=== PATIENT | female | born 1950 | race Caucasian/White ===

== ENCOUNTER → 2017-07-28 | Outpatient (CLI) | payer OTHER ==
[~2017-07-28] MED LIST: BENZ1TAB2 PO; CITA20TA4 PO; RISP1TAB68 PO
--- NOTE | 2017-07-28 13:34 | MAMMOGRAPHY REPORT ---
BILATERAL DIGITAL SCREENING MAMMOGRAM WITH CAD: 07/28/2017 CLINICAL HISTORY: Routine screening. Patient has no complaints. TECHNIQUE: Bilateral CC and MLO views were obtained. Current study was also evaluated with a Compute r Aided Detection (CAD) system. COMPARISON: Comparison is made to exams dated: 07/22/2016 mammogram, 05/09/2010 mammogram, 06/22/2015 ammogram - [facility], and 03/28/2009. BREAST COMPOSITION: The tissue of both breasts is heterogeneously dense, which may obscure small mas ses. FINDINGS: The breast., Pattern is similar to prior exams. A stable grouping of punctate microcalcif ications in the slightly medial posterior right breast appear similar dating back to at least 2008, t herefore likely benign. No suspicious mass, architectural distortion or cluster of new, suspicious m icrocalcifications is seen. IMPRESSION: ACR BI-RADS CATEGORY 1: NEGATIVE There is no mammographic evidence of malignancy. A 1 year screening mammogram is recommended. The pa tient will receive written notification of the results. Approximately 10% of breast cancers are not detected with mammography. A negative mammographic report should not delay biopsy if a clinically suggestive mass is present. Cecilia Lizarraga M.D. ay/:07/28/2017 13:26:49 Maintenance Technician: Roseanne FIELDS(Alexis)(M), [facility] letter sent: Normal 1/2 BI-RADS Code: ACR BI-RADS Category 1: Negative
== END | disposition home or self-care (01) ==
LOC: C.MAMM 09:48
PROVIDERS: ATTEND Family Medicine
DX: Z12.31 Encounter for screening mammogram for malignant neoplasm of breast (principal)

== ENCOUNTER → 2018-02-23 | Day surgery (SDC) | payer OTHER ==
[2018-02-18 10:44] VITALS: Ht 160 cm; Wt 94.9 kg
--- NOTE | 2018-02-18 11:15 | PAT Medication Instructions ---
Service Date February 18, 2018. Current Home Medication List Acetaminophen (Tylenol), 650 MG PO Q6H PRN for PRN Aripiprazole (Abilify), 1 TAB PO DAILY Bromfenac Sodium (Ophth) (Prolensa), Unknown Dose OPR UD Guaifenesin (Tussin Adult), 5 ML PO QID PRN for CONGESTION Polymyxin/Trimethoprim Oph (Polytrim Oph), Unknown Dose OPR UD Prednisolone Acetate (Ophth) (Pred Forte 1% Oph), 1 DROPS OPR UD Venlafaxine Hcl (Venlafaxine Hcl Er), 2 CAP PO DAILY Medication Instructions For Your Scheduled Surgery -Continue as directed by your surgeon: Bromfenac Sodium (Ophth) (Prolensa), Unknown Dose OPR UD Polymyxin/Trimethoprim Oph (Polytrim Oph), Unknown Dose OPR UD Prednisolone Acetate (Ophth) (Pred Forte 1% Oph), 1 DROPS OPR UD - Hold the following medications the morning of surgery: Guaifenesin (Tussin Adult), 5 ML PO QID PRN for CONGESTION - Take the following medications the morning of surgery with a sip of water: Acetaminophen (Tylenol), 650 MG PO Q6H PRN for PRN (if needed, can be taken up to four hours before surgery) Aripiprazole (Abilify), 1 TAB PO DAILY Venlafaxine Hcl (Venlafaxine Hcl Er), 2 CAP PO DAILY - Take the following medications as scheduled the night before surgery: Acetaminophen (Tylenol), 650 MG PO Q6H PRN for PRN (if needed) Guaifenesin (Tussin Adult), 5 ML PO QID PRN for CONGESTION (if needed) If you have any questions please call us at [phone] or [phone] or [phone]
[2018-02-18 12:06] LABS: BASO % 0.5 %; BASO ABS # 0.03 K/uL (0-0.2); EOS % 0.5 %; EOS ABS # 0.03 K/uL (0-0.5); HEMATOCRIT 38.2 % (37-47); HEMOGLOBIN 12.8 g/dL (12.0-16.0); IG# 0.01 K/uL (0.00-0.02); LYMPH % 29.5 %; LYMPH ABS # 1.66 K/uL (1.2-3.4); MEAN CELL VOLUME 91.4 fL (80-100); MEAN CORPUSCULAR HEMOGLOBIN 30.6 pg (25-34); MEAN CORPUSCULAR HGB CONC 33.5 g/dl (32-36); MEAN PLATELET VOLUME 10.3 fL (7.4-10.4); MONO % 6.9 %; MONO ABS # 0.39 K/uL (0.11-0.59); NEUT % 62.4 %; PLATELET COUNT 229 K/uL (130-400); RED CELL DISTRIBUTION WIDTH CV 14.2 % (11.5-14.5); RED CELL DISTRIBUTION WIDTH SD 47.8 fL (36.4-46.3); WHITE BLOOD COUNT 5.62 K/uL (4.8-10.8)
[~2018-02-23] VITALS: Ht 160 cm; Wt 94.9 kg
[~2018-02-23] MED LIST changes: +500ML BSS 0.3ML EPI 1:1000PF IRRIG ONE; +ABL10 PO; +ACET-1311 PO; +ACETAMINOPHEN 325 MG TAB PO PRN; +AMVISC PLUS 0.8ML SYRINGE INT OCU ONE; +ATROPINE SULFATE 0.1 MG/ML 5ML SYR IV PRN; -BENZ1TAB2 PO; +BRIMONIDINE TART 0.2% OP SOLN PER DROP CHARGE ONE; +BROM0.07 OPR; +BROM1SOL8 OPR; +BSS FLUSH ONE; -CITA20TA4 PO; +ENDOCOAT 0.85ML SYRINGE INT OCU ONE; +EpHEDrine SULFATE INJ 50 MG/ML AMP IV PRN; +EpINEphrine INJ 1MG/ML AMP 1 MG/ML AMP ONE; +GUAI1LIQ16 PO; +LACTATED RINGER'S 1000ML 500 ML IV SCH; +LIDOCAINE 4% OP SOLN DROP CHARGE ONE; +LIDOCAINE 4% OP SOLN DROP CHARGE OPR SCH; +LIDOCAINE HCL 1% MPF 2 ML VIAL ONE; +LIDOCAINE HCL 2% 2 ML VIAL (20MG/ML) ONE; +MIDAZOLAM HCL 1 MG/ML 2ML VIAL ONE; +MIX: 3ML BSS AND 1ML EPI(PF) TOP ONE; +MOXIFLOXACIN OPH SOLN PER DROP CHARGE ONE; +PHENYLEPHRINE 100MCG/ML 5ML SYR IV PRN; +POLYSOL50 OPR; +POVIDONE-IODINE OP SOLN 30 ML BTL ONE; +PRED1SUS3 OPR; +PROPARACAINE 0.5% OP SOLN PER DROP CHARGE OPR SCH; +PROPOFOL IV EMULSION 10 MG/ML 20 ML VIAL ONE; -RISP1TAB68 PO; +TOBRAMYCIN/DEXAMETHASONE OPH OINT PER APPLN CHARGE ONE; +VENL150T33 PO
[2018-02-23] MEDS: PHENYLEPHRINE HCL 2.5% OP SOLN PER DROP CHARGE OPR SCH ×2 (07:00→07:05)
[2018-02-23] MEDS: TROPICAMIDE 1% OP SOLN PER DROP CHARGE OPR SCH ×2 (07:01→07:06)
[2018-02-23] MEDS: CYCLOPENTOLATE HCL 1% OP SOLN PER DROP CHARGE OPR SCH ×2 (07:02→07:07)
[2018-02-23] MEDS: KETOROLAC 0.5% OP SOLN PER DROP CHARGE OPR SCH ×2 (07:03→07:08)
[2018-02-23] MEDS: MOXIFLOXACIN OPH SOLN PER DROP CHARGE OPR SCH ×2 (07:04→07:14)
--- NOTE | 2018-02-23 07:39 | History & Physical Bridge - [place] ---
H&P Re-Evaluation Bridge Note: I have examined the patient, reviewed the History & Physical and in the interval since the performance of the History & Physical I have noted the following changes of clinical significance: Long discussion with patient and sister. Patient desires a plano aim for lens
--- NOTE | 2018-02-23 08:34 | [facility] Operative Report ---
Operative Report Operative Date February 23, 2018. Pre-Operative Diagnosis Cataract Right Eye Post-Operative Diagnosis Same Procedure(s) Performed Right Cataract Phacoemulsification With Intraocular Lens Implant Surgeon Dr. [facility] Agent Surgeon(s) None Estimated Blood Loss 0 Findings cataract right eye Fluids see anesthesia record Specimens None Drains None Anesthesia Type MAC Complication(s) none Disposition no Recovery Room / PACU Indications decreased vision right eye Description of Procedure After informed consent was obtained in the holding area the patient was wheeled back to the operating room where cardiac monitoring leads and oxygen by nasal cannula was administered by Anesthesia. Gentle IV sedation was given, and the patient's right eye was prepped and draped in usual sterile fashion. A wire lid speculum was placed into the right eye and the operating microscope was swung into position. Using 0.12 forceps and a Supersharp blade a paracentesis port was made 2 o'clock hours away from the 9 o'clock position of the patient's right eye. 1% non-preserved Lidocaine was then injected into the anterior chamber for anesthesia. A 2.0 mm keratotome blade was then used to make a shelved clear corneal incision at the 9 o'clock position of the right eye. Amvisc was injected into the anterior chamber and a cystotome and Utrata forceps were used to perform a curvilinear capsulorrhexis. BSS on a hydrodissection cannula was used to hydrodissect the lens nucleus away from the capsular bag. The phacoemulsification handpiece was then used in a stop and chop fashion to remove the lens nucleus. The irrigation and aspiration handpiece was then used to remove the residual cortical material. Amvisc was injected into the capsular bag and anterior chamber and a Bausch [employer] Lomb MX60E 21.5 Diopter intraocular lens was injected into the capsular bag. Irrigation and aspiration handpiece was used to remove the residual viscoelastic material. The wounds were hydrated and noted to be watertight. The wire lid speculum was removed from the eye. Vigamox, Brimonidine, and TobraDex ointment were placed on the eye and it was shielded. It should be noted that EndoCoat was used extensively during the case to protect the cornea endothelium. DISPOSITION: The patient tolerated the procedure well and was wheeled to the post anesthesia care unit in stable condition. I attest to the content of the Intraoperative Record and any orders documented therein. Any exceptions are noted below. I attest to the content of the Intraoperative Record and any orders documented therein. Any exceptions are noted below.
--- NOTE | 2018-02-23 08:36 | Discharge Instructions-SurgCtr ---
Discharge Instructions Date of Service February 23, 2018. Visit Reason for Visit: Cataract Right Eye Discharge Discharge Diagnosis / Problem: cataract right eye Discharge Goals Goal(s): Improve function Activity Recommendations Activity Limitations: per Instructions/Follow-up section Lifting Limitations: no more than 5 pounds Anesthesia . Post Anesthesia Instructions: If you have had General Anesthesia or IV Sedation: * Do not drive today. * Resume driving when surgeon permits. * Do not make important decisions or sign legal documents today. * Call surgeon for: 1. Temperature elevations greater than 101 degrees F. 2. Uncontrollable pain. 3. Excessive bleeding. 4. Persistent nausea and vomiting. 5. Medication intolerance (nausea, vomiting or rash). * For nausea and vomiting use only clear liquids such as: tea, soda, bouillon until nausea subsides, then gradually increase diet as tolerated. * If you have any concerns or questions, call your surgeon's office. If physician is unavailable and it is an emergency, call 911 or go to the nearest emergency room. . Instructions / Follow-Up Instructions / Follow-Up ACTIVITY RECOMMENDATIONS: * Light activities * You may walk outside, read, watch television. * Mild irritation and blurred vision are common for the first few days, redness around the white part of the eye is common. MEDICATIONS: Resume previous medications unless instructed otherwise by your surgeon. Eye drops (today and tomorrow): Polytrim - one drop in operative eye every 2 hours while awake Prednisolone 1% - one drop in operative eye every 2 hours while awake Bromfenac - one drop in operative eye once daily SPECIAL CARE INSTRUCTIONS: * If any problems or concerns, please call Dr. Brannon's office at . * Keep plastic shield taped over eye to sleep at night. * Keep plastic shield taped over eye except to administer eye drops. * Keep plastic shield on until office visit the following day. FOLLOW UP VISIT: Follow-up with Dr. Brannon in the [place] office as scheduled. If not already scheduled, please call the office at . Diet Recommendations Home Diet: resume previous diet Procedures Procedures Performed: Right Cataract Phacoemulsification With Intraocular Lens Implant Pending Studies Studies pending at discharge: no Medical Emergencies . Who to Call and When: Medical Emergencies: If at any time you feel your situation is an emergency, please call 911 immediately. . Non-Emergent Contact Non-Emergency issues call your: Shipping Support Clerk . . "Provider Documentation" section prepared by Miguelito Brannon. .
[2018-02-23 09:06] VITALS: BP 129/80; PULSE 74; O2SAT 96
--- NOTE | 2018-02-23 09:07 | Anesthesia Progress Nt - [facility] ---
Anesthesia Post Op Note Date & Time February 23, 2018 at 09:06 Vital Signs Pain Intensity: 0 Vital Signs Past 12 Hours Date Time Temp Pulse Resp B/P (MAP) Pulse Ox O2 Delivery O2 Flow Rate FiO2 02/23/18 08:36 36.7 74 20 104/70 (81) 94 Room Air 02/23/18 06:52 36.9 85 18 101/70 (80) 95 Room Air Notes Mental Status: alert / awake / arousable, participated in evaluation Pt Amnestic to Procedure: Yes Nausea / Vomiting: adequately controlled Pain: adequately controlled Airway Patency, RR, SpO2: stable & adequate BP & HR: stable & adequate Hydration State: stable & adequate Anesthetic Complications: no major complications apparent Awake, doing well, VSS. Did not require GA for the procedure. Tolerated procedure well with sedation. No complaints. Ready for d/c
== END | disposition home or self-care (01) ==
LOC: X.SURG 06:39
PROVIDERS: ATTEND Ophthalmology
DX: H26.9 Unspecified cataract (principal); F32.9 Major depressive disorder, single episode, unspecified; R41.3 Other amnesia; Z79.899 Other long term (current) drug therapy; E66.9 Obesity, unspecified; Z68.37 Body mass index [BMI] 37.0-37.9, adult; Z85.41 Personal history of malignant neoplasm of cervix uteri; Z87.891 Personal history of nicotine dependence

== ENCOUNTER 2020-09-25 10:36 | Inpatient (IN) ==
[2020-09-25] MEDS ORDERED: SODIUM CHLORIDE 0.9% 1000ML 1,000 ML IV SCH (11:15)
[2020-09-25 11:32] LABS: Basophils # (auto) 0.02 K/uL (0-0.2); Basophils % (auto) 0.3 %; Eosinophils # (auto) 0.02 K/uL (0-0.5); Eosinophils % (auto) 0.3 %; Hematocrit (blood only) 39.6 % (37-47); Hemoglobin 12.9 g/dL (12.0-16.0); Immature Granulocytes # (auto) 0.01 K/uL (0.00-0.02); Immature Granulocytes % (auto) 0.2 %; Lymphocytes # (auto) 1.19 K/uL (1.2-3.4); Lymphocytes % (auto) 18.9 %; Mean Corpuscular Hemoglobin 29.5 pg (25-34); Mean Corpuscular Hgb Conc 32.6 g/dL (32-36); Mean Corpuscular Volume 90.4 fL (80-100); Mean Platelet Volume 10.8 fL (7.4-10.4); Monocytes # (auto) 0.57 K/uL (0.11-0.59); Neutrophils # (auto) 4.49 K/uL (1.4-6.5); Neutrophils % (auto) 71.3 %; Platelet Count 204 K/uL (130-400); RDW Coefficient of Variation 14.4 % (11.5-14.5); RDW Standard Deviation 47.7 fL (36.4-46.3); Red Blood Count 4.38 M/uL (4.2-5.4)
[2020-09-25] MEDS ORDERED: DEXAMETHASONE SOD INJ 10 MG/ML VIAL IV ONE (11:34)
[2020-09-25 12:03] LABS: Alanine Aminotransferase 23 U/L (12-78); Albumin Level 3.1 gm/dl (3.4-5.0); Aspartate Aminotransferase 22 U/L (15-37); BUN Creatinine Ratio 15.6 (10-20); Blood Urea Nitrogen 16 mg/dl (7-18); Calcium 8.5 mg/dl (8.5-10.1); Carbon Dioxide 24 mmol/L (21-32); Chloride 105 mmol/L (98-107); Creatinine Clr Calc Pharmacy 59.5 ml/min; Est GFR (African American) 66.1; Glucose 95 mg/dl (70-99); Sodium 135 mmol/L (136-145)
[2020-09-25 12:08] LABS: Albumin Globulin Ratio 0.7 (0.9-2); Alkaline Phosphatase 77 U/L (45-117); Bilirubin,Total 0.4 mg/dl (0.2-1); Globulin 4.4 gm/dl (2.5-4.0); Total Protein 7.5 gm/dl (6.4-8.2); Troponin I < 0.015 ng/ml (0-0.045)
--- NOTE | 2020-09-25 12:14 | XRay Report ---
XR chest 1V portable CLINICAL HISTORY: fever cough covid+ COMPARISON STUDY: No previous studies for comparison. FINDINGS: Lung volumes are mildly diminished. There is no pneumothorax or pleural effusion. Mild to m oderate bilateral lower lung airspace opacities are present with interstitial thickening. There is abdulaziz rderline cardiomegaly. There is no evidence for pulmonary edema. IMPRESSION: Mild to moderate bilateral lower lung airspace opacities and interstitial thickening con sistent with an infectious process. Radiographic follow-up is recommended. ACT 112: Negative or not required by law. Electronically signed by: Lai Biggs M.D. 09/25/2020 12:12 PM
--- NOTE | 2020-09-25 12:23 | Electrocardiogram Report ---
Test Reason : Blood Pressure : / mmHG Vent. Rate : 088 BPM Atrial Rate : 088 BPM P-R Int : 160 ms QRS Dur : 070 ms QT Int : 358 ms P-R-T Axes : -01 -21 039 degrees QTc Int : 433 ms Poor data quality, interpretation may be adversely affected Normal sinus rhythm with sinus arrhythmia Nonspecific ST abnormality Abnormal ECG When compared with ECG of 18-FEB-2018 11:31, No significant change Confirmed by Vic Dumont ([id number]) on 09/25/2020 12:22:39 PM Referred By: REFERRED SELF Confirmed By:Vic Dumont
--- NOTE | 2020-09-25 15:11 | History & Physical Report ---
Date of Service September 25, 2020 Assessment & Plan (1) COVID-19: Isolation precautions: Airborne and droplet IV dexamethasone 6 mg daily Remdesivir IV 5-day course Patient declined convalescent plasma after discussion of benefits versus risks (2) Hypoxia: Secondary to COVID-19 pneumonia as above Aim O2 sats > 90% (3) Anxiety and depression: Continue venlafaxine 300 mg p.o. every morning and mirtazapine 15 mg p.o. at bedtime (4) Memory loss: Monitor for delirium Reorientate frequently (5) DVT prophylaxis: D-dimer < 700 therefore will give usual dose of lovenox 40mg SQ daily Admission and Anticipated Discharge Date Admission Date: 09/25/2020 History of Present Illness Chief Complaint: Hypoxia Primary Care Provider: Katalina Hart MD Estelle Lamas is a 70 year old female who presents for ER from [facility] via EMS due to fever, cough, shortness of breath, loss of taste and smell. The patient has known positive SARS-CoV-2 test on 09/20, resulted on 09/23. She reports her symptoms started 5 to 6 days ago. Symptoms include Fever, chills, shortness of breath (denied by patient but she is unsure), cough (non- prodictive), loss of taste or smell, myalgias, headache, fatigue, confusion. She was initially doing well however was found by carers today with O2 sats 84% on room air therefore was sent via EMS to the ER for further evaluation. In the ER O2 sats were 88% on room air. Chest x-ray concerning for mild to moderate bilateral airspace opacities and interstitial thickening. She was given 1 hour NSS bolus and dexamethasone 6 mg IV and referred to medicine for admission and ongoing management of COVID-19 pneumonia. Allergies Allergy/AdvReac Type Severity Reaction Status Date / Time No Known Allergies Allergy Unverified 03/16/18 08:48 Home Medications Medication Instructions Recorded Confirmed Type mirtazapine 15 mg PO HS 09/25/20 09/25/20 History venlafaxine 300 mg PO QAM 09/25/20 09/25/20 History Past Med/Surg History Medical History Anxiety and depression Memory loss Social History Smoking Status: Former smoker Hx Alcohol Use: No Hx Substance Use: No Preferred Language: Nepalese Communication Ability: Effective Pop Singer Required: No Beliefs That Will Affect Care: None Current Living Situation: Personal Care Facility Other Information That Helps Us Care for You: No Feels Safe at Home: Yes Safety Concerns: Feels Safe At This Time Assistive Devices: Oxygen - Continuous Review of Systems Review of Systems: All systems reviewed & are unremarkable except as noted in HPI & below Physical Exam Constitutional: well developed and well nourished; no acute distress Eyes: PERRL, conjunctivae normal, anicteric sclerae ENMT: external ear and nose normal, oropharynx normal Neck: trachea midline, no thyromegaly Respiratory: normal respiratory effort, lungs clear to auscultation Cardiovascular: RRR, no murmur, no edema Gastrointestinal (Abdomen): normal bowel sounds, soft, nontender, no hepatosplenomegaly Musculoskeletal: no cyanosis or clubbing, extremities motor strength 5/5 Skin: no rashes, warm and dry Neurologic: moves all extremities and awake; not confused Psychiatric: A+Ox3, euthymic affect Genitourinary: no CVA tenderness Results & Data Results & Data ([facility]) Vital Signs (Past 12 Hours) Vital Signs Temp Pulse Resp BP Pulse Ox 09/25/20 14:51 87 17 121/61 09/25/20 14:30 89 24 121/61 91 09/25/20 14:00 87 24 09/25/20 13:30 86 24 09/25/20 13:00 85 31 H 91 09/25/20 12:30 89 24 09/25/20 12:00 88 20 09/25/20 11:34 83 24 96 09/25/20 10:46 88 21 131/76 95 09/25/20 10:43 88 20 88 L 09/25/20 10:40 38.1 C H 86 20 131/76 88 L Diagnostic Findings XR chest 1V portable IMPRESSION: Mild to moderate bilateral lower lung airspace opacities and interstitial thickening consistent with an infectious process. Radiographic follow-up is recommended. Medications Administered ER medications given: NSS 1 L bolus Dexamethasone 6 mg IV ECG Indication: SOB/dyspnea Rate (beats per minute): 88 Rhythm: sinus with SA Findings: + nonspecific-ST abn (Nondiagnostic ST depressions in V4/V5) Comparison ECG Date: from (February 18, 2018) Change: the following changes noted (Nonspecific ST changes as above are new) Code Status & VTE Plan Code Status Full VTE Prophylaxis Plan VTE Prophylaxis will be ordered: Yes PG Care Time/CCT Total # of Minutes Spent Total Time Spent with Patient: Total time spent is greater than 50% in coordination of care (as documented) at patient's floor/unit and/or counseling patient: Coding Level of Care Code 87030 Initial Inpt Care Lvl 2 History Comprehensive Exam Comprehensive Medical Decision Making Moderate Complexity Diagnoses COVID-19 U07.1 Hypoxia R09.02 Anxiety and depression F41.9; F32.9 Memory loss R41.3 DVT prophylaxis Z29.9
[2020-09-25 15:37] LABS: C Reactive Protein 14.2 mg/dl (0-0.29); Ferritin 255.6 ng/ml (8-388)
[2020-09-25 15:39] LABS: D Dimer 580 ug/L FEU (0-500)
[2020-09-25] MEDS ORDERED: REMDESIVIR 200 MG in SODIUM CHLORIDE 0.9% 210 ML IV ONE (16:15)
[2020-09-25] MEDS ORDERED: SODIUM CHLORIDE 0.9% 10ML FLUSH IV SCH (18:00)
[2020-09-25] MEDS ORDERED: ACETAMINOPHEN 325 MG TAB PO PRN (18:13)
[2020-09-25] MEDS ORDERED: ALUMINUM/MAGNESIUM SUSP 30 ML UDC PO PRN (18:13)
[2020-09-25] MEDS ORDERED: POLYETHYLENE (MIRALAX) 17 GM PACK PO PRN (18:13)
[2020-09-25] MEDS ORDERED: PNEUMOCOCCAL ADMINISTRATION CHARGE ONE (18:38)
[2020-09-25] MEDS ORDERED: PNEUMOCOCCAL POLYSACCHARIDES 25 MCG/0.5 ML VIAL/SYR IM ONE (18:38)
--- NOTE | 2020-09-25 18:45 | Emergency Department Note ---
History of Present Illness General Chief complaint: Shortness of Breath/Dyspnea Time Seen by Provider: 09/25/20 11:03 Source: patient and RN notes reviewed Mode of arrival: EMS Limitations: no limitations History of Present Illness Provider complaint: SOB, hypoxia, COVID exposure This pt is a 70 yo female who presents to the ED with c/o SOB, cough and low O2. Pt lives in assisted living and has 2 roommates. The other 2 roommates have already been ill and tested + for COVID. Pt developed symptoms, including loss of taste and smell 3 days ago and tested positive 2 days ago. Pt was noted to have O2 sats of 84% on RA by staff today but was in no distress. Patient denies any vomiting or diarrhea. Home Medications Medication Instructions Recorded Confirmed Type mirtazapine 15 mg PO HS 09/25/20 09/25/20 History venlafaxine 300 mg PO QAM 09/25/20 09/25/20 History Allergies Allergy/AdvReac Type Severity Reaction Status Date / Time No Known Allergies Allergy Unverified 03/16/18 08:48 Past Med/Surg History Medical History Anxiety and depression Memory loss Social History Smoking Status: Former smoker Hx Alcohol Use: No Hx Substance Use: No Preferred Language: Tongan Communication Ability: Effective [employer] Required: No Beliefs That Will Affect Care: None Current Living Situation: Personal Care Facility Other Information That Helps Us Care for You: No Feels Safe at Home: Yes Safety Concerns: Feels Safe At This Time Assistive Devices: Oxygen - Continuous Review of Systems See HPI for pertinent positives & negatives. and A total of 10 systems reviewed and were otherwise negative Physical Exam Vital Signs Vital Signs - 24 hr 09/25/20 12:30 09/25/20 13:00 09/25/20 13:30 Temperature Temperature Source Pulse Rate 89 85 86 Pulse Rate from SpO2 Sensor 71 107 H Respiratory Rate 24 31 H 24 Blood Pressure Blood Pressure Mean Pulse Oximetry 91 Oxygen Delivery Method Nasal Cannula Oxygen Flow Rate 2 09/25/20 14:00 09/25/20 14:24 09/25/20 14:30 Temperature 37.5 C Temperature Source Oral Pulse Rate 87 89 Pulse Rate from SpO2 Sensor Respiratory Rate 24 24 Blood Pressure 121/61 Blood Pressure Mean 81 Pulse Oximetry 91 Oxygen Delivery Method Nasal Cannula Oxygen Flow Rate 2 09/25/20 14:51 Temperature Temperature Source Pulse Rate 87 Pulse Rate from SpO2 Sensor Respiratory Rate 17 Blood Pressure 121/61 Blood Pressure Mean 82 Pulse Oximetry Oxygen Delivery Method Oxygen Flow Rate Vital signs reviewed. General: Somewhat ill appearing 70 yo female, in no significant distress. HEENT: No scleral icterus, PERRLA, neck supple. Atraumatic. Cardiovascular: Regular rate and rhythm, no extra sounds. Pulmonary: Clear to auscultation bilaterally, normal work of breathing on n/c O2 Abdomen: Soft, nontender, nondistended, positive bowel sounds. Musculoskeletal: Atraumatic, no peripheral edema. Neurologic: Patient awake alert and oriented x 3 Skin: Warm, dry, no rash Course Administered Medications Acetaminophen (Acetaminophen 325 Mg Tab) 650 mg PO Q4H PRN PRN Reason: pain/fever Stop: 10/25/20 18:12 Last Admin: 09/26/20 08:03 Dose: 650 mg Documented by: [id number] Enoxaparin Sodium (Enoxaparin Inj 40 Mg/0.4 Ml Syr) 40 mg SQ QPM ADITI Stop: 10/25/20 20:59 Last Admin: 09/26/20 20:06 Dose: 40 mg Documented by: [id number] Admin: 09/25/20 21:25 Dose: 40 mg Documented by: [id number] Remdesivir 100 mg/ Sodium (Chloride) 250 mls @ 250 mls/hr IV Q24H ADITI; Protocol Stop: 09/29/20 20:59 Last Infusion: 09/26/20 22:25 Dose: 0 mls/hr Documented by: [id number] Admin: 09/26/20 20:06 Dose: 250 mls/hr Documented by: [id number] Dexamethasone Sodium Phosphate (6 mg/ Syringe) 1.5 mls @ 1 mls/min IV DAILY ADITI Stop: 10/05/20 08:59 Last Admin: 09/26/20 08:03 Dose: 1 mls/min Documented by: [id number] Mirtazapine (Mirtazapine Tab 15 Mg Tab) 15 mg PO HS ADITI Stop: 10/25/20 20:59 Last Admin: 09/26/20 20:06 Dose: 15 mg Documented by: [id number] Admin: 09/25/20 21:25 Dose: 15 mg Documented by: [id number] Sodium Chloride (Sodium Chloride 0.9% 10ml Flush) 30 ml IV Q24H ADITI Stop: 09/29/20 20:01 Last Admin: 09/25/20 19:42 Dose: 30 ml Documented by: [id number] Venlafaxine HCl (Venlafaxine Hcl Xr 150 Mg Capxr) 300 mg PO QAM ADITI Stop: 10/26/20 08:59 Last Admin: 09/26/20 08:03 Dose: 300 mg Documented by: [id number] Discontinued Medications Dexamethasone (Dexamethasone Sod Inj 10 Mg/Ml Vial) 6 mg IV NOW ONE Stop: 09/25/20 11:35 Last Admin: 09/25/20 13:15 Dose: 6 mg Documented by: [id number] Sodium Chloride (Nss 1000ml) 1,000 mls @ 999 mls/hr IV .Q1H1M ADITI Stop: 09/25/20 12:15 Last Infusion: 09/25/20 13:21 Dose: 0 mls/hr Documented by: [id number] Admin: 09/25/20 11:26 Dose: 999 mls/hr Documented by: [id number] Remdesivir 200 mg/ Sodium (Chloride) 250 mls @ 125 mls/hr IV ONE ONE; Protocol Stop: 09/25/20 18:14 Last Infusion: 09/25/20 19:42 Dose: 0 mls/hr Documented by: [id number] Admin: 09/25/20 17:06 Dose: 125 mls/hr Documented by: [id number] Medical Decision Making Differential Diagnosis Viral syndrome/COVID, otitis, pharyngitis, pneumonia, influenza, meningitis, urinary tract infection, sepsis, bacteremia, as well as other pathologies. Medical Records Attestation: I reviewed the patient's medical records. Home Medications Current Medication List: was personally reviewed by me Laboratory Data Attestation: I reviewed the patient's lab results. Result diagrams: 09/26/20 09:46 09/26/20 09:46 Lab Results 09/25/20 09/25/20 09/25/20 Range/Units 11:04 11:04 11:42 WBC 6.30 (4.8-10.8) K/uL RBC 4.38 (4.2-5.4) M/uL Hgb 12.9 (12.0-16.0) g/dL Hct 39.6 (37-47) % MCV 90.4 (80-100) fL MCH 29.5 (25-34) pg MCHC 32.6 (32-36) g/dL RDW Std Deviation 47.7 H (36.4-46.3) fL RDW Coeff of Princess 14.4 (11.5-14.5) % Plt Count 204 (130-400) K/uL MPV 10.8 H (7.4-10.4) fL Immature Gran % (Auto) 0.2 % Neut % (Auto) 71.3 % Lymph % (Auto) 18.9 % [place] % (Auto) 9.0 % Eos % (Auto) 0.3 % Baso % (Auto) 0.3 % Neut # (Auto) 4.49 (1.4-6.5) K/uL Lymph # (Auto) 1.19 L (1.2-3.4) K/uL [place] # (Auto) 0.57 (0.11-0.59) K/uL Eos # (Auto) 0.02 (0-0.5) K/uL Baso # (Auto) 0.02 (0-0.2) K/uL Immature Gran # (Auto) 0.01 (0.00-0.02) K/uL D-Dimer (0-500) ug/L FEU Sodium 135 L (136-145) mmol/L Potassium 4.0 (3.5-5.1) mmol/L Chloride 105 (98-107) mmol/L Carbon Dioxide 24 (21-32) mmol/L Anion Gap 6.0 (3-11) BUN 16 (7-18) mg/dl Creatinine 1.00 (0.6-1.2) mg/dl Est Cr Clr Drug Dosing 59.5 ml/min Est GFR ( Amer) 66.1 Est GFR (Non-Af Amer) 57.0 BUN/Creatinine Ratio 15.6 (10-20) Glucose 95 (70-99) mg/dl Lactate 0.8 (0.4-2.0) mmol/L Calcium 8.5 (8.5-10.1) mg/dl Ferritin (8-388) ng/ml Total Bilirubin 0.4 (0.2-1) mg/dl AST 22 (15-37) U/L ALT 23 (12-78) U/L Alkaline Phosphatase 77 (45-117) U/L Lactate Dehydrogenase (84-246) U/L Total Creatine Kinase (26-192) U/L Troponin I < 0.015 (0-0.045) ng/ml C-Reactive Protein (0-0.29) mg/dl Total Protein 7.5 (6.4-8.2) gm/dl Albumin 3.1 L (3.4-5.0) gm/dl Globulin 4.4 H (2.5-4.0) gm/dl Albumin/Globulin Ratio 0.7 L (0.9-2) Procalcitonin (0-0.5) ng/ml Specimen Hemolysis COVID-19 Eval Order SARS-CoV-2, RNA, NAAT (NEGATIVE) Blood Type Antibody Screen 09/25/20 09/25/20 09/25/20 Range/Units 11:42 13:06 13:06 WBC (4.8-10.8) K/uL RBC (4.2-5.4) M/uL Hgb (12.0-16.0) g/dL Hct (37-47) % MCV (80-100) fL MCH (25-34) pg MCHC (32-36) g/dL RDW Std Deviation (36.4-46.3) fL RDW Coeff of Princess (11.5-14.5) % Plt Count (130-400) K/uL MPV (7.4-10.4) fL Immature Gran % (Auto) % Neut % (Auto) % Lymph % (Auto) % [place] % (Auto) % Eos % (Auto) % Baso % (Auto) % Neut # (Auto) (1.4-6.5) K/uL Lymph # (Auto) (1.2-3.4) K/uL [place] # (Auto) (0.11-0.59) K/uL Eos # (Auto) (0-0.5) K/uL Baso # (Auto) (0-0.2) K/uL Immature Gran # (Auto) (0.00-0.02) K/uL D-Dimer (0-500) ug/L FEU Sodium (136-145) mmol/L Potassium (3.5-5.1) mmol/L Chloride (98-107) mmol/L Carbon Dioxide (21-32) mmol/L Anion Gap (3-11) BUN (7-18) mg/dl Creatinine (0.6-1.2) mg/dl Est Cr Clr Drug Dosing ml/min Est GFR ( Amer) Est GFR (Non-Af Amer) BUN/Creatinine Ratio (10-20) Glucose (70-99) mg/dl Lactate (0.4-2.0) mmol/L Calcium (8.5-10.1) mg/dl Ferritin (8-388) ng/ml Total Bilirubin (0.2-1) mg/dl AST (15-37) U/L ALT (12-78) U/L Alkaline Phosphatase (45-117) U/L Lactate Dehydrogenase (84-246) U/L Total Creatine Kinase (26-192) U/L Troponin I (0-0.045) ng/ml C-Reactive Protein (0-0.29) mg/dl Total Protein (6.4-8.2) gm/dl Albumin (3.4-5.0) gm/dl Globulin (2.5-4.0) gm/dl Albumin/Globulin Ratio (0.9-2) Procalcitonin 0.12 (0-0.5) ng/ml Specimen Hemolysis COVID-19 Eval [email or web address] SARS-CoV-2, RNA, NAAT POSITIVE A* (NEGATIVE) Blood Type Antibody Screen 09/25/20 09/25/20 09/25/20 Range/Units 14:59 14:59 14:59 WBC (4.8-10.8) K/uL RBC (4.2-5.4) M/uL Hgb (12.0-16.0) g/dL Hct (37-47) % MCV (80-100) fL MCH (25-34) pg MCHC (32-36) g/dL RDW Std Deviation (36.4-46.3) fL RDW Coeff of Princess (11.5-14.5) % Plt Count (130-400) K/uL MPV (7.4-10.4) fL Immature Gran % (Auto) % Neut % (Auto) % Lymph % (Auto) % [place] % (Auto) % Eos % (Auto) % Baso % (Auto) % Neut # (Auto) (1.4-6.5) K/uL Lymph # (Auto) (1.2-3.4) K/uL [place] # (Auto) (0.11-0.59) K/uL Eos # (Auto) (0-0.5) K/uL Baso # (Auto) (0-0.2) K/uL Immature Gran # (Auto) (0.00-0.02) K/uL D-Dimer 580 H* (0-500) ug/L FEU Sodium (136-145) mmol/L Potassium (3.5-5.1) mmol/L Chloride (98-107) mmol/L Carbon Dioxide (21-32) mmol/L Anion Gap (3-11) BUN (7-18) mg/dl Creatinine (0.6-1.2) mg/dl Est Cr Clr Drug Dosing ml/min Est GFR ( Amer) Est GFR (Non-Af Amer) BUN/Creatinine Ratio (10-20) Glucose (70-99) mg/dl Lactate (0.4-2.0) mmol/L Calcium (8.5-10.1) mg/dl Ferritin 255.6 (8-388) ng/ml Total Bilirubin (0.2-1) mg/dl AST (15-37) U/L ALT (12-78) U/L Alkaline Phosphatase (45-117) U/L Lactate Dehydrogenase 203 (84-246) U/L Total Creatine Kinase 47 (26-192) U/L Troponin I (0-0.045) ng/ml C-Reactive Protein 14.20 H (0-0.29) mg/dl Total Protein (6.4-8.2) gm/dl Albumin (3.4-5.0) gm/dl Globulin (2.5-4.0) gm/dl Albumin/Globulin Ratio (0.9-2) Procalcitonin (0-0.5) ng/ml Specimen Hemolysis COVID-19 Eval Order SARS-CoV-2, RNA, NAAT (NEGATIVE) Blood Type Antibody Screen 09/25/20 Range/Units 14:59 WBC (4.8-10.8) K/uL RBC (4.2-5.4) M/uL Hgb (12.0-16.0) g/dL Hct (37-47) % MCV (80-100) fL MCH (25-34) pg MCHC (32-36) g/dL RDW Std Deviation (36.4-46.3) fL RDW Coeff of Princess (11.5-14.5) % Plt Count (130-400) K/uL MPV (7.4-10.4) fL Immature Gran % (Auto) % Neut % (Auto) % Lymph % (Auto) % [place] % (Auto) % Eos % (Auto) % Baso % (Auto) % Neut # (Auto) (1.4-6.5) K/uL Lymph # (Auto) (1.2-3.4) K/uL [place] # (Auto) (0.11-0.59) K/uL Eos # (Auto) (0-0.5) K/uL Baso # (Auto) (0-0.2) K/uL Immature Gran # (Auto) (0.00-0.02) K/uL D-Dimer (0-500) ug/L FEU Sodium (136-145) mmol/L Potassium (3.5-5.1) mmol/L Chloride (98-107) mmol/L Carbon Dioxide (21-32) mmol/L Anion Gap (3-11) BUN (7-18) mg/dl Creatinine (0.6-1.2) mg/dl Est Cr Clr Drug Dosing ml/min Est GFR ( Amer) Est GFR (Non-Af Amer) BUN/Creatinine Ratio (10-20) Glucose (70-99) mg/dl Lactate (0.4-2.0) mmol/L Calcium (8.5-10.1) mg/dl Ferritin (8-388) ng/ml Total Bilirubin (0.2-1) mg/dl AST (15-37) U/L ALT (12-78) U/L Alkaline Phosphatase (45-117) U/L Lactate Dehydrogenase (84-246) U/L Total Creatine Kinase (26-192) U/L Troponin I (0-0.045) ng/ml C-Reactive Protein (0-0.29) mg/dl Total Protein (6.4-8.2) gm/dl Albumin (3.4-5.0) gm/dl Globulin (2.5-4.0) gm/dl Albumin/Globulin Ratio (0.9-2) Procalcitonin (0-0.5) ng/ml Specimen Hemolysis COVID-19 Eval Order SARS-CoV-2, RNA, NAAT (NEGATIVE) Blood Type O Negative Antibody Screen NEGATIVE Imaging Data Radiologist's Impression: XR chest 1V portable CLINICAL HISTORY: fever cough covid+ COMPARISON STUDY: No previous studies for comparison. FINDINGS: Lung volumes are mildly diminished. There is no pneumothorax or pleural effusion. Mild to moderate bilateral lower lung airspace opacities are present with interstitial thickening. There is borderline cardiomegaly. There is no evidence for pulmonary edema. IMPRESSION: Mild to moderate bilateral lower lung airspace opacities and interstitial thickening consistent with an infectious process. Radiographic follow-up is recommended. ACT 112: Negative or not required by law. Electronically signed by: Lai Biggs M.D. 09/25/2020 12:12 PM Dictated: 09/25/202Transcribed: 09/25/20 121 ECG Data Attestation: I personally reviewed and interpreted this ECG as follows: Indication: + SOB/dyspnea Rate (beats per minute): 88 Rhythm: + sinus with SA ECG Intervals/blocks: + Normal QT-c ECG ST segments: + Nonspecific ST abnormalities ECG Findings: + Q waves (Inferior) Blood Pressure Blood Pressure Findings: Normal blood pressure Blood Pressure Disposition: did not require urgent referral MDM Narrative This pt was evaluated and appeared to be in no distress. Patient was placed in isolation. IV access was obtained and lab work was drawn. Patient was hydrated with normal saline solution. She was placed on nasal cannula oxygen. An order for cardiac monitoring was placed and the patient was noted to be in a sinus rhythm at 88 bpm. Chest x-ray was performed and reveals bilateral lower airspace opacities. Patient was positive for COVID-19. Patient was given dexa methasone 6 mg IV. Case was discussed with the hospitalist service who will evaluate the patient for admission and further management. Impression & Plan Pneumonia due to 2019 novel coronavirus, Hypoxia Discharge Plan Visit Data Chief Complaint: Shortness of Breath/Dyspnea ED Provider: Valeria Kim Discharge Problem: Pneumonia due to 2019 novel coronavirus, Hypoxia Patient Disposition: Admitted As Inpatient Discharge Instructions Interventions: ED Discharge Assessment Last Done: 09/25/20 18:07
[2020-09-25] MEDS: SODIUM CHLORIDE 0.9% 10ML FLUSH IV SCH (19:42)
[2020-09-25] MEDS: MIRTAZAPINE TAB 15 MG TAB PO SCH (21:25)
[2020-09-25] MEDS: ENOXAPARIN INJ 40 MG/0.4 ML SYR SQ SCH (21:25)
[2020-09-25 22:22] LABS: Appearance Urine Cloudy (Clear); Bacteria Urine Automated Negative (Negative); Blood Urine Negative (Negative); Color Urine Dark Yellow; Epithelial Cell Urine Auto >30 /lpf (0-5); Glucose Urine UA Negative (Negative); Ketones Urine 1+ (Negative); Leukocyte Esterase Urine Negative (Negative); Nitrite Urine Negative (Negative); Protein Urine 1+ (Negative); Specific Gravity Urine 1.036 (1.000-1.030); Urobilinogen Urine Negative (Negative)
[2020-09-25 22:40] LABS: Bilirubin Urine Negative (Negative); Ictotest Urine Negative (Negative)
[2020-09-25 23:09] LABS: Mucus Urine Present (None Prsent)
[2020-09-25 23:10] LABS: RBC Urine Automated 0-4 /hpf (0-4)
[2020-09-26] MEDS: VENLAFAXINE HCL XR 150 MG CAPXR PO SCH (08:03)
[2020-09-26] MEDS: DEXAMETHASONE SOD PHOSPHATE 6 MG in SYRINGE 0 ML IV SCH (08:03)
[2020-09-26] MEDS ORDERED: DEXAMETHASONE SOD INJ 4 MG/ML VIAL IV SCH (09:00)
[2020-09-26 10:26] LABS: Basophils # (auto) 0.02 K/uL (0-0.2); Basophils % (auto) 0.3 %; Eosinophils # (auto) 0.01 K/uL (0-0.5); Eosinophils % (auto) 0.1 %; Hematocrit (blood only) 39.3 % (37-47); Hemoglobin 12.6 g/dL (12.0-16.0); Immature Granulocytes # (auto) 0.01 K/uL (0.00-0.02); Immature Granulocytes % (auto) 0.1 %; Lymphocytes # (auto) 0.57 K/uL (1.2-3.4); Lymphocytes % (auto) 7.5 %; Mean Corpuscular Hgb Conc 32.1 g/dL (32-36); Mean Corpuscular Volume 90.6 fL (80-100); Mean Platelet Volume 10.9 fL (7.4-10.4); Monocytes # (auto) 0.32 K/uL (0.11-0.59); Monocytes % (auto) 4.2 %; Neutrophils # (auto) 6.72 K/uL (1.4-6.5); Neutrophils % (auto) 87.8 %; Platelet Count 201 K/uL (130-400); RDW Coefficient of Variation 14.3 % (11.5-14.5); RDW Standard Deviation 48.1 fL (36.4-46.3); Red Blood Count 4.34 M/uL (4.2-5.4); White Blood Count 7.65 K/uL (4.8-10.8)
[2020-09-26 10:55] LABS: Albumin Level 2.7 gm/dl (3.4-5.0); BUN Creatinine Ratio 24.5 (10-20); Calcium 8.5 mg/dl (8.5-10.1); Creatinine Clr Calc Pharmacy 66.3 ml/min; Est GFR (African American) 75.1; Est GFR (Non-African American) 64.8; Potassium 3.6 mmol/L (3.5-5.1)
[2020-09-26 10:57] LABS: Albumin Globulin Ratio 0.6 (0.9-2); Bilirubin,Total 0.3 mg/dl (0.2-1); Globulin 4.3 gm/dl (2.5-4.0)
--- NOTE | 2020-09-26 16:15 | Hospitalist Progress Note ---
Date of Service September 26, 2020 Assessment & Plan (1) COVID-19: Isolation precautions: Airborne and droplet IV dexamethasone 6 mg daily, day 2 Remdesivir IV 5-day course, day 2 Patient declined convalescent plasma after discussion of benefits versus risks stable on 2L, try to wean as tolerated (2) Hypoxia: Secondary to COVID-19 pneumonia as above Aim O2 sats > 90% stable on 2L today, no increased work of breathing (3) Anxiety and depression: Continue venlafaxine 300 mg p.o. every morning and mirtazapine 15 mg p.o. at bedtime (4) Memory loss: Monitor for delirium Reorientate frequently (5) DVT prophylaxis: D-dimer < 700 therefore will give usual dose of lovenox 40mg SQ daily Admission and Anticipated Discharge Date Admission Date: September 25, 2020 Subjective patient laying in bed, doing a little better she says she does not have much of an appetite, food tastes okay, just not hungry she is breathing easier than at the time of admission, stable on 2L currently she has some diaphoresis but denies fever/chills, nausea/vomiting, diarrhea, cough reviewed chart reviewed labs, CBC and BMP both stable Review of Systems Review of Systems: All systems reviewed & are unremarkable except as noted in Subjective Physical Exam Constitutional: WD/WN, vitals as above + ill appearing and + diaphoretic; no acute distress Neck: trachea midline, no thyromegaly Respiratory: normal respiratory effort, lungs clear to auscultation Cardiovascular: RRR, no murmur, no edema Gastrointestinal (Abdomen): normal bowel sounds, soft, nontender, no hepatosplenomegaly Musculoskeletal: no cyanosis or clubbing, extremities motor strength 5/5 Skin: no rashes, warm and dry Neurologic: patellar DTR's 2+ bilat, sensation intact and PERRL, EOMI, accommodation nl, no face palsy, no dysarthria Psychiatric: A+Ox3, euthymic affect Lymphatic: no cervical or axillary lymphadenopathy Results & Data Results & Data ([facility]) Vital Signs (Past 12 Hours) Vital Signs Temp Pulse Resp BP Pulse Ox 09/26/20 15:07 36.5 C 77 20 138/80 96 09/26/20 10:35 93 09/26/20 08:09 94 09/26/20 07:36 36.9 C 84 18 119/66 93 Laboratory Results Laboratory Results - last 24 hr 09/25/20 09/25/20 09/26/20 21:35 21:35 09:46 WBC 7.65 RBC 4.34 Hgb 12.6 Hct 39.3 MCV 90.6 MCH 29.0 MCHC 32.1 RDW Std Deviation 48.1 H RDW Coeff of Princess 14.3 Plt Count 201 MPV 10.9 H Immature Gran % (Auto) 0.1 Neut % (Auto) 87.8 Lymph % (Auto) 7.5 [place] % (Auto) 4.2 Eos % (Auto) 0.1 Baso % (Auto) 0.3 Neut # (Auto) 6.72 H Lymph # (Auto) 0.57 L [place] # (Auto) 0.32 Eos # (Auto) 0.01 Baso # (Auto) 0.02 Immature Gran # (Auto) 0.01 Sodium Potassium Chloride Carbon Dioxide Anion Gap BUN Creatinine Est Cr Clr Drug Dosing Est GFR ( Amer) Est GFR (Non-Af Amer) BUN/Creatinine Ratio Glucose Calcium Total Bilirubin AST ALT Alkaline Phosphatase Total Protein Albumin Globulin Albumin/Globulin Ratio Urine Color Dark Yellow Urine Appearance Cloudy A Urine pH 5.0 Ur Specific [place] 1.036 H Urine Protein 1+ H Urine Glucose (UA) Negative Urine Ketones 1+ H Urine Blood Negative Urine Nitrite Negative Urine Bilirubin Negative Urine Urobilinogen Negative Ur Leukocyte Esterase Negative Urine WBC (Auto) 10-30 H Urine RBC (Auto) 0-4 U Hyaline Cast (Auto) 1-5 U Epithel Cells (Auto) >30 H Urine Bacteria (Auto) Negative Ur Renal Epithelial Cell Not Reportable Urine Mucus Present A Urine Yeast Not Reportable Nasal Screen MRSA (PCR) Negative 09/26/20 09:46 WBC RBC Hgb Hct MCV MCH MCHC RDW Std Deviation RDW Coeff of Princess Plt Count MPV Immature Gran % (Auto) Neut % (Auto) Lymph % (Auto) [place] % (Auto) Eos % (Auto) Baso % (Auto) Neut # (Auto) Lymph # (Auto) [place] # (Auto) Eos # (Auto) Baso # (Auto) Immature Gran # (Auto) Sodium 140 Potassium 3.6 Chloride 110 H Carbon Dioxide 23 Anion Gap 7.0 BUN 22 H Creatinine 0.90 Est Cr Clr Drug Dosing 66.3 Est GFR ( Amer) 75.1 Est GFR (Non-Af Amer) 64.8 BUN/Creatinine Ratio 24.5 H Glucose 155 H Calcium 8.5 Total Bilirubin 0.3 AST 16 ALT 21 Alkaline Phosphatase 67 Total Protein 7.0 Albumin 2.7 L Globulin 4.3 H Albumin/Globulin Ratio 0.6 L Urine Color Urine Appearance Urine pH Ur Specific [place] Urine Protein Urine Glucose (UA) Urine Ketones Urine Blood Urine Nitrite Urine Bilirubin Urine Urobilinogen Ur Leukocyte Esterase Urine WBC (Auto) Urine RBC (Auto) U Hyaline Cast (Auto) U Epithel Cells (Auto) Urine Bacteria (Auto) Ur Renal Epithelial Cell Urine Mucus Urine Yeast Nasal Screen MRSA (PCR) Medications Administered Current Inpatient Medications Acetaminophen (Acetaminophen 325 Mg Tab) 650 mg PO Q4H PRN PRN Reason: pain/fever Stop: 10/25/20 18:12 Last Admin: 09/26/20 08:03 Dose: 650 mg Documented by: Al Hydrox/Mg Hydrox/Simethicone (Aluminum/Magnesium Susp 30 Ml Udc) 30 ml PO Q6H PRN PRN Reason: Dyspepsia Stop: 10/25/20 18:12 Enoxaparin Sodium (Enoxaparin Inj 40 Mg/0.4 Ml Syr) 40 mg SQ QPM ADITI Stop: 10/25/20 20:59 Last Admin: 09/25/20 21:25 Dose: 40 mg Documented by: Remdesivir 100 mg/ Sodium (Chloride) 250 mls @ 250 mls/hr IV Q24H ADITI; Protocol Stop: 09/29/20 20:59 Dexamethasone Sodium Phosphate (6 mg/ Syringe) 1.5 mls @ 1 mls/min IV DAILY ADITI Stop: 10/05/20 08:59 Last Admin: 09/26/20 08:03 Dose: 1 mls/min Documented by: Mirtazapine (Mirtazapine Tab 15 Mg Tab) 15 mg PO HS ADITI Stop: 10/25/20 20:59 Last Admin: 09/25/20 21:25 Dose: 15 mg Documented by: Polyethylene Glycol (Polyethylene (Miralax) 17 Gm Pack) 17 gm PO DAILY PRN PRN Reason: Constipation Stop: 10/25/20 18:12 Sodium Chloride (Sodium Chloride 0.9% 10ml Flush) 30 ml IV Q24H ADITI Stop: 09/29/20 20:01 Last Admin: 09/25/20 19:42 Dose: 30 ml Documented by: Venlafaxine HCl (Venlafaxine Hcl Xr 150 Mg Capxr) 300 mg PO QAM [facility] Stop: 10/26/20 08:59 Last Admin: 09/26/20 08:03 Dose: 300 mg Documented by: PG Care Time/CCT Total # of Minutes Spent Total Time Spent with Patient: Total time spent is greater than 50% in coordination of care (as documented) at patient's floor/unit and/or counseling patient: Coding Level of Care Code 90060 Subseq Hosp Care Lvl 2 Diagnoses COVID-19 U07.1 Hypoxia R09.02 Anxiety and depression F41.9; F32.9 Memory loss R41.3 DVT prophylaxis Z29.9
[2020-09-26] MEDS: REMDESIVIR 100 MG in SODIUM CHLORIDE 0.9% 230 ML IV SCH (20:06)
[2020-09-26] MEDS: ENOXAPARIN INJ 40 MG/0.4 ML SYR SQ SCH (20:06)
[2020-09-26] MEDS: MIRTAZAPINE TAB 15 MG TAB PO SCH (20:06)
[2020-09-27] MEDS: VENLAFAXINE HCL XR 150 MG CAPXR PO SCH (08:44)
[2020-09-27] MEDS: DEXAMETHASONE SOD PHOSPHATE 6 MG in SYRINGE 0 ML IV SCH (08:44)
--- NOTE | 2020-09-27 16:47 | Hospitalist Progress Note ---
Date of Service September 27, 2020 Assessment & Plan (1) COVID-19: Isolation precautions: Airborne and droplet IV dexamethasone 6 mg daily, day 3 Remdesivir IV 5-day course, day 3 Patient declined convalescent plasma after discussion of benefits versus risks remains stable on 2L, no increased work of breathing try to wean as tolerated (2) Hypoxia: Secondary to COVID-19 pneumonia as above Aim O2 sats > 90% stable on 2L today, try to wean (3) Anxiety and depression: Continue venlafaxine 300 mg p.o. every morning and mirtazapine 15 mg p.o. at bedtime (4) Memory loss: Monitor for delirium Reorientate frequently (5) DVT prophylaxis: D-dimer < 700 therefore will give usual dose of lovenox 40mg SQ daily Admission and Anticipated Discharge Date Admission Date: September 25, 2020 Subjective patient remains stable, breathing is the same she is trying to eat but still does not have much taste no fever/chills, no nausea, no diarrhea stable on 2L no labs today Review of Systems Review of Systems: All systems reviewed & are unremarkable except as noted in Subjective Physical Exam Constitutional: WD/WN, vitals as above no acute distress Neck: trachea midline, no thyromegaly Respiratory: normal respiratory effort, lungs clear to auscultation Cardiovascular: RRR, no murmur, no edema Gastrointestinal (Abdomen): normal bowel sounds, soft, nontender, no hepatosplenomegaly Musculoskeletal: no cyanosis or clubbing, extremities motor strength 5/5 Skin: no rashes, warm and dry Neurologic: patellar DTR's 2+ bilat, sensation intact and PERRL, EOMI, accommodation nl, no face palsy, no dysarthria Psychiatric: A+Ox3, euthymic affect Lymphatic: no cervical or axillary lymphadenopathy Results & Data Results & Data ([facility]) Vital Signs (Past 12 Hours) Vital Signs Temp Pulse Resp BP Pulse Ox 09/27/20 15:30 37.0 C 72 18 128/77 92 09/27/20 08:40 85 L 09/27/20 07:12 37 C 71 18 144/80 H 91 09/27/20 06:01 92 09/27/20 06:00 78 L Medications Administered Current Inpatient Medications Acetaminophen (Acetaminophen 325 Mg Tab) 650 mg PO Q4H PRN PRN Reason: pain/fever Stop: 10/25/20 18:12 Last Admin: 09/26/20 08:03 Dose: 650 mg Documented by: Al Hydrox/Mg Hydrox/Simethicone (Aluminum/Magnesium Susp 30 Ml Udc) 30 ml PO Q6H PRN PRN Reason: Dyspepsia Stop: 10/25/20 18:12 Enoxaparin Sodium (Enoxaparin Inj 40 Mg/0.4 Ml Syr) 40 mg SQ QPM ADITI Stop: 10/25/20 20:59 Last Admin: 09/26/20 20:06 Dose: 40 mg Documented by: Remdesivir 100 mg/ Sodium (Chloride) 250 mls @ 250 mls/hr IV Q24H ADITI; Protocol Stop: 09/29/20 20:59 Last Infusion: 09/26/20 22:25 Dose: Infused Documented by: Dexamethasone Sodium Phosphate (6 mg/ Syringe) 1.5 mls @ 1 mls/min IV DAILY ADITI Stop: 10/05/20 08:59 Last Admin: 09/27/20 08:44 Dose: 1 mls/min Documented by: Mirtazapine (Mirtazapine Tab 15 Mg Tab) 15 mg PO HS ADITI Stop: 10/25/20 20:59 Last Admin: 09/26/20 20:06 Dose: 15 mg Documented by: Polyethylene Glycol (Polyethylene (Miralax) 17 Gm Pack) 17 gm PO DAILY PRN PRN Reason: Constipation Stop: 10/25/20 18:12 Sodium Chloride (Sodium Chloride 0.9% 10ml Flush) 30 ml IV Q24H ADITI Stop: 09/29/20 20:01 Last Admin: 09/25/20 19:42 Dose: 30 ml Documented by: Venlafaxine HCl (Venlafaxine Hcl Xr 150 Mg Capxr) 300 mg PO QAM ADITI Stop: 10/26/20 08:59 Last Admin: 09/27/20 08:44 Dose: 300 mg Documented by: PG Care Time/CCT Total # of Minutes Spent Total Time Spent with Patient: Total time spent is greater than 50% in coordination of care (as documented) at patient's floor/unit and/or counseling patient: Coding Level of Care Code 25052 Subseq Hosp Care Lvl 2 Diagnoses COVID-19 U07.1 Hypoxia R09.02 Anxiety and depression F41.9; F32.9 Memory loss R41.3 DVT prophylaxis Z29.9
[2020-09-27] MEDS: ENOXAPARIN INJ 40 MG/0.4 ML SYR SQ SCH (20:28)
[2020-09-27] MEDS: MIRTAZAPINE TAB 15 MG TAB PO SCH (20:28)
[2020-09-27] MEDS: REMDESIVIR 100 MG in SODIUM CHLORIDE 0.9% 230 ML IV SCH (20:28)
[2020-09-27] MEDS: SODIUM CHLORIDE 0.9% 10ML FLUSH IV SCH (20:30)
[2020-09-28] MEDS: DEXAMETHASONE SOD PHOSPHATE 6 MG in SYRINGE 0 ML IV SCH (08:37)
[2020-09-28] MEDS: VENLAFAXINE HCL XR 150 MG CAPXR PO SCH (08:37)
--- NOTE | 2020-09-28 16:37 | Hospitalist Progress Note ---
Date of Service September 28, 2020 Assessment & Plan (1) COVID-19: Isolation precautions: Airborne and droplet IV dexamethasone 6 mg daily, day 4 Remdesivir IV 5-day course, day 34 Patient declined convalescent plasma after discussion of benefits versus risks remains stable on 2L, no increased work of breathing try to wean as tolerated formal consults for PT/OT placed (2) Hypoxia: Secondary to COVID-19 pneumonia as above Aim O2 sats > 90% stable again on 2L today, try to wean (3) Anxiety and depression: Continue venlafaxine 300 mg p.o. every morning and mirtazapine 15 mg p.o. at bedtime (4) Memory loss: Monitor for delirium Reorientate frequently (5) DVT prophylaxis: D-dimer < 700 therefore will give usual dose of lovenox 40mg SQ daily Admission and Anticipated Discharge Date Admission Date: September 25, 2020 Subjective patient pleasant, laying in bed, no acute issues she says she is getting up to the chair, ambulating to the restroom told her we will get formal therapy evaluations since she will need them to return to [facility] eating well, vitals stable, on 2L NC Review of Systems Review of Systems: All systems reviewed & are unremarkable except as noted in Subjective Physical Exam Constitutional: WD/WN, vitals as above no acute distress Neck: trachea midline, no thyromegaly Respiratory: normal respiratory effort, lungs clear to auscultation Cardiovascular: RRR, no murmur, no edema Gastrointestinal (Abdomen): normal bowel sounds, soft, nontender, no hepatosplenomegaly Musculoskeletal: no cyanosis or clubbing, extremities motor strength 5/5 Skin: no rashes, warm and dry Neurologic: patellar DTR's 2+ bilat, sensation intact and PERRL, EOMI, accommodation nl, no face palsy, no dysarthria Psychiatric: A+Ox3, euthymic affect Lymphatic: no cervical or axillary lymphadenopathy Results & Data Results & Data ([facility]) Vital Signs (Past 12 Hours) Vital Signs Temp Pulse Resp BP Pulse Ox 09/28/20 07:20 36.6 C 70 16 142/83 H 91 Medications Administered Current Inpatient Medications Acetaminophen (Acetaminophen 325 Mg Tab) 650 mg PO Q4H PRN PRN Reason: pain/fever Stop: 10/25/20 18:12 Last Admin: 12/22/20 08:03 Dose: 650 mg Documented by: Al Hydrox/Mg Hydrox/Simethicone (Aluminum/Magnesium Susp 30 Ml Udc) 30 ml PO Q6H PRN PRN Reason: Dyspepsia Stop: 10/25/20 18:12 Enoxaparin Sodium (Enoxaparin Inj 40 Mg/0.4 Ml Syr) 40 mg SQ QPM [facility] Stop: 10/25/20 20:59 Last Admin: 09/27/20 20:28 Dose: 40 mg Documented by: Remdesivir 100 mg/ Sodium (Chloride) 250 mls @ 250 mls/hr IV Q24H [facility]; Protocol Stop: 09/29/20 20:59 Last Infusion: 09/27/20 22:29 Dose: Infused Documented by: Dexamethasone Sodium Phosphate (6 mg/ Syringe) 1.5 mls @ 1 mls/min IV DAILY [facility] Stop: 10/05/20 08:59 Last Admin: 09/28/20 08:37 Dose: 1 mls/min Documented by: Mirtazapine (Mirtazapine Tab 15 Mg Tab) 15 mg PO HS [facility] Stop: 10/25/20 20:59 Last Admin: 09/27/20 20:28 Dose: 15 mg Documented by: Polyethylene Glycol (Polyethylene (Miralax) 17 Gm Pack) 17 gm PO DAILY PRN PRN Reason: Constipation Stop: 10/25/20 18:12 Sodium Chloride (Sodium Chloride 0.9% 10ml Flush) 30 ml IV Q24H [facility] Stop: 09/29/20 20:01 Last Admin: 09/27/20 20:30 Dose: 30 ml Documented by: Venlafaxine HCl (Venlafaxine Hcl Xr 150 Mg Capxr) 300 mg PO QAM [facility] Stop: 10/26/20 08:59 Last Admin: 09/28/20 08:37 Dose: 300 mg Documented by: PG Care Time/CCT Total # of Minutes Spent Total Time Spent with Patient: Total time spent is greater than 50% in coordination of care (as documented) at patient's floor/unit and/or counseling patient: Coding Level of Care Code 08884 Subseq Hosp Care Lvl 2 Diagnoses COVID-19 U07.1 Hypoxia R09.02 Anxiety and depression F41.9; F32.9 Memory loss R41.3 DVT prophylaxis Z29.9
[2020-09-28] MEDS: REMDESIVIR 100 MG in SODIUM CHLORIDE 0.9% 230 ML IV SCH (20:35)
[2020-09-28] MEDS: ENOXAPARIN INJ 40 MG/0.4 ML SYR SQ SCH (20:43)
[2020-09-28] MEDS: MIRTAZAPINE TAB 15 MG TAB PO SCH (20:44)
[2020-09-28] MEDS: SODIUM CHLORIDE 0.9% 10ML FLUSH IV SCH (21:41)
[2020-09-29] MEDS: DEXAMETHASONE SOD PHOSPHATE 6 MG in SYRINGE 0 ML IV SCH (09:24)
[2020-09-29] MEDS: VENLAFAXINE HCL XR 150 MG CAPXR PO SCH (09:24)
--- NOTE | 2020-09-29 10:44 | Hospitalist Progress Note ---
Date of Service September 29, 2020 Assessment & Plan (1) Pneumonia due to 2019 novel coronavirus: (2) COVID-19: Isolation precautions: Airborne and droplet IV dexamethasone 6 mg daily, day 5 Remdesivir IV 5-day course, day 5 Patient declined convalescent plasma after discussion of benefits versus risks remains stable on 2L, no increased work of breathing for days try to wean as tolerated formal consults for PT/OT placed she is from [facility] and needs to be independent on evaluation to return to her level of care (3) Hypoxia: Secondary to COVID-19 pneumonia as above Aim O2 sats > 90% stable again on 2L today, try to wean as tolerated no increased work of breathing (4) Anxiety and depression: Continue venlafaxine 300 mg p.o. every morning and mirtazapine 15 mg p.o. at bedtime (5) Memory loss: Monitor for delirium Reorientate frequently she is pleasant and cooperative, knows it is (6) DVT prophylaxis: D-dimer < 700 therefore will give usual dose of lovenox 40mg SQ daily Admission and Anticipated Discharge Date Admission Date: September 25, 2020 Subjective patient feels the same as yesterday, but she is eating more she is happy watching HBC[employer] movies and doing her word searches discussed getting therapy, likely not to happen today with the holiday she is breathing easy on 2L Review of Systems Review of Systems: All systems reviewed & are unremarkable except as noted in Subjective Physical Exam Constitutional: WD/WN, vitals as above no acute distress Neck: trachea midline, no thyromegaly Respiratory: normal respiratory effort, lungs clear to auscultation Cardiovascular: RRR, no murmur, no edema Gastrointestinal (Abdomen): normal bowel sounds, soft, nontender, no hepatosplenomegaly Musculoskeletal: no cyanosis or clubbing, extremities motor strength 5/5 Skin: no rashes, warm and dry Neurologic: patellar DTR's 2+ bilat, sensation intact and PERRL, EOMI, accommodation nl, no face palsy, no dysarthria Psychiatric: A+Ox3, euthymic affect Lymphatic: no cervical or axillary lymphadenopathy Results & Data Results & Data ([facility]) Vital Signs (Past 12 Hours) Vital Signs Temp Pulse Resp BP Pulse Ox 09/29/20 08:01 36.8 C 67 143/85 H 94 09/28/20 23:55 90 09/28/20 23:45 36.6 C 65 20 137/78 87 L Medications Administered Current Inpatient Medications Acetaminophen (Acetaminophen 325 Mg Tab) 650 mg PO Q4H PRN PRN Reason: pain/fever Stop: 10/25/20 18:12 Last Admin: 09/26/20 08:03 Dose: 650 mg Documented by: Al Hydrox/Mg Hydrox/Simethicone (Aluminum/Magnesium Susp 30 Ml Udc) 30 ml PO Q6H PRN PRN Reason: Dyspepsia Stop: 10/25/20 18:12 Enoxaparin Sodium (Enoxaparin Inj 40 Mg/0.4 Ml Syr) 40 mg SQ QPM [facility] Stop: 10/25/20 20:59 Last Admin: 09/28/20 20:43 Dose: 40 mg Documented by: Remdesivir 100 mg/ Sodium (Chloride) 250 mls @ 250 mls/hr IV Q24H [facility]; Protocol Stop: 09/29/20 20:59 Last Infusion: 09/28/20 21:41 Dose: Infused Documented by: Dexamethasone Sodium Phosphate (6 mg/ Syringe) 1.5 mls @ 1 mls/min IV DAILY [facility] Stop: 10/05/20 08:59 Last Admin: 09/29/20 09:24 Dose: 1 mls/min Documented by: Mirtazapine (Mirtazapine Tab 15 Mg Tab) 15 mg PO HS [facility] Stop: 10/25/20 20:59 Last Admin: 09/28/20 20:44 Dose: 15 mg Documented by: Polyethylene Glycol (Polyethylene (Miralax) 17 Gm Pack) 17 gm PO DAILY PRN PRN Reason: Constipation Stop: 10/25/20 18:12 Sodium Chloride (Sodium Chloride 0.9% 10ml Flush) 30 ml IV Q24H [facility] Stop: 09/29/20 20:01 Last Admin: 09/28/20 21:41 Dose: 30 ml Documented by: Venlafaxine HCl (Venlafaxine Hcl Xr 150 Mg Capxr) 300 mg PO QAM [facility] Stop: 10/26/20 08:59 Last Admin: 09/29/20 09:24 Dose: 300 mg Documented by: PG Care Time/CCT Total # of Minutes Spent Total Time Spent with Patient: Total time spent is greater than 50% in coordination of care (as documented) at patient's floor/unit and/or counseling patient: Coding Level of Care Code 37754 Subseq Hosp Care Lvl 2 Diagnoses Pneumonia due to 2019 novel coronavirus U07.1; J12.89 COVID-19 U07.1 Hypoxia R09.02 Anxiety and depression F41.9; F32.9 Memory loss R41.3 DVT prophylaxis Z29.9
[2020-09-29] MEDS: REMDESIVIR 100 MG in SODIUM CHLORIDE 0.9% 230 ML IV SCH (20:00)
[2020-09-29] MEDS: SODIUM CHLORIDE 0.9% 10ML FLUSH IV SCH (20:01)
[2020-09-29] MEDS: MIRTAZAPINE TAB 15 MG TAB PO SCH (20:02)
[2020-09-29] MEDS: ENOXAPARIN INJ 40 MG/0.4 ML SYR SQ SCH (20:02)
[2020-09-30] MEDS: VENLAFAXINE HCL XR 150 MG CAPXR PO SCH (09:36)
[2020-09-30] MEDS: DEXAMETHASONE SOD PHOSPHATE 6 MG in SYRINGE 0 ML IV SCH (09:37)
--- NOTE | 2020-09-30 15:05 | Discharge Summary ---
Date of Service September 30, 2020 Admission HPI Per Admitting Provider Estelle Lamas is a 70 year old female who presents for ER from [facility] via EMS due to fever, cough, shortness of breath, loss of taste and smell. The patient has known positive SARS-CoV-2 test on 09/20, resulted on 09/23. She reports her symptoms started 5 to 6 days ago. Symptoms include Fever, chills, shortness of breath (denied by patient but she is unsure), cough (non- prodictive), loss of taste or smell, myalgias, headache, fatigue, confusion. She was initially doing well however was found by carers today with O2 sats 84% on room air therefore was sent via EMS to the ER for further evaluation. In the ER O2 sats were 88% on room air. Chest x-ray concerning for mild to moderate bilateral airspace opacities and interstitial thickening. She was given 1 hour NSS bolus and dexamethasone 6 mg IV and referred to medicine for admission and ongoing management of COVID-19 pneumonia. Principal Diagnosis Covid-19 pneumonia, acute respiratory failure with hypoxia Discharge Exam Constitutional WD/WN, vitals as above Eyes + anicteric sclerae Neck trachea midline, no thyromegaly Respiratory normal respiratory effort, lungs clear to auscultation Cardiovascular RRR, no murmur, no edema Chest (Breasts) Chest: normal inspection of chest Gastrointestinal (Abdomen) normal bowel sounds, soft, nontender, no hepatosplenomegaly Musculoskeletal Extremities: extremities normal to inspection; no cyanosis and no clubbing Skin no rashes, warm and dry Neurologic moves all extremities and awake; no focal motor deficits Psychiatric Orientation: alert, oriented to person, oriented to place and cooperative Lymphatic no lymphedema Discharge Data Allergies Allergy/AdvReac Type Severity Reaction Status Date / Time No Known Allergies Allergy Unverified 03/16/18 08:48 Consultations 09/25/20 13:59 ED Decision to Admit Stat Ordered Studies Chest x-ray Hospital Course (1) Pneumonia due to 2019 novel coronavirus: (2) COVID-19: Covid-19 pneumonia with acute respiratory failure with hypoxia Was treated with IV dexamethasone 6 mg daily, and will complete 5 more days upon discharge of p.o. dexamethasone Remdesivir IV 5-day course was completed prior to discharge Patient declined convalescent plasma after discussion of benefits versus risks She was weaned off oxygen at rest, but was still requiring 3 L nasal cannula with exertion upon discharge She was doing very well formal consults for PT/OT placed and she was stable for discharge back to her previous level of care (3) Hypoxia: Secondary to COVID-19 pneumonia as above Needs 3 L nasal cannula with exertion upon discharge Follow-up with PCP to determine when can wean off oxygen Finish out dexamethasone course (4) Anxiety and depression: Stable Continue venlafaxine 300 mg p.o. every morning and mirtazapine 15 mg p.o. at bedtime (5) Memory loss: Doing well, no delirium Has caretakers at her home (6) DVT prophylaxis: Was treated with lovenox 40mg SQ daily Disposition-stable for discharge back [facility] Total Time Total Time Spent Total Time Spent (In Minutes): 35 minutes Total Time Includes: Examination of the Patient, Discharge Planning and Medication Reconciliation Discharge Plan Discharge Items Patient Disposition: Home - Home Health Services Reason For Visit: COVID 19 PNEUMONIA, HYPOXIA Discharge Diagnosis: COVID-19 Pneumonia, Hypoxia Condition on Discharge: Good Activity: Resume your previous activity Bathing: No limitations Exercise/Sports: Gradually increase as tolerated Non-emergency contact: Primary Care Provider Call non-emergency contact if: you have any medication questions, your symptoms worsen and you have a fever Follow-up/Referrals: Katalina Hart MD [Primary Care Provider] - (Follow up within 1-2 weeks) Diet: Regular Addtl Attending Provider Instructions: You were treated for COVID-19 Pneumonia. You were still needing some oxygen when you walked around and this should continue at home until your doctor tells you to stop the oxygen. You will need to take the steroid pill called dexamethasone x 5 more days to help improve your pneumonia. Follow up with your PCP within 1 week. Pending Studies at Discharge: No Stand-Alone Forms: My [facility] Medications and DC Order Prescriptions: New dexamethasone 6 mg tablet 6 mg PO DAILY Qty: 5 RF: 0 (DME) Oxygen Home Liters Per Minute See Rx Instructions .ROUTE .COMPLEX Qty: 1 RF: 0 Continued venlafaxine 150 mg capsule,extended release 24hr 300 mg PO QAM RF: 0 mirtazapine 15 mg tablet 15 mg PO HS RF: 0 Discharge Orders: Discharge Order (Routine); Ordered 09/30/20 Ordered By: Natalia Dai Admission Data Admit Date/Time: 09/25/20 15:23 Attending Provider: Natalia Dai Admit Provider: Ion Shepherd Primary Care Provider: Katalina Hart Other Providers: Ion Shepherd Other Interventions: Discharge Summary Assessment (RN) Last Done: 09/30/20 16:25 Coding Level of Care Code D/C Day Management >30 mins Diagnoses Pneumonia due to 2019 novel coronavirus U07.1; J12.89 COVID-19 U07.1 Hypoxia R09.02 Anxiety and depression F41.9; F32.9 Memory loss R41.3 DVT prophylaxis Z29.9
[2020-09-30] MEDS ORDERED: dexAMETHasone 1 MG TAB PO SCH (17:00)
[2020-10-01] MEDS ORDERED: dexAMETHasone 1 MG TAB PO SCH (09:00)
== END 2020-09-30 18:06 | disposition home or self-care (01) | DRG 177 ==
LOC: ED 10:36 → 3E 15:23 → SUATTDRO 15:23 → 3E 18:07

== ENCOUNTER 2024-07-06 11:30 | Inpatient (IN) ==
[2024-07-06 12:22] LABS: Base Excess VBG 0.3 mEq/L; HCO3 VBG 26 mmol/L; Oxygen Saturation VBG < 60.0 %; PCO2 VBG 45 mmHg (38-50); PO2 VBG 20 mmHg; pH VBG 7.37 (7.36-7.41)
[2024-07-06 12:31] LABS: Hematocrit (blood only) 41.5 % (37.0-47.0); Hemoglobin 13.8 g/dl (12.0-16.0); Mean Corpuscular Hemoglobin 29.3 pg (25.0-34.0); Mean Corpuscular Hgb Conc 33.3 g/dL (32.0-36.0); Mean Corpuscular Volume 88.1 fL (80.0-100.0); Mean Platelet Volume 11.8 fL (9.4-12.4); Platelet Count 53 K/uL (130-400); RDW Coefficient of Variation 13.9 % (11.5-14.5); RDW Standard Deviation 45.2 fL (36.4-46.3); Red Blood Count 4.71 M/uL (4.20-5.40); White Blood Count 8.08 K/ul (4.8-10.8)
--- NOTE | 2024-07-06 13:05 | Emergency Department Note ---
Impression & Plan Pneumonia, Hypoxia ED Provider Note NAME: ELÍAS GARRISON AGE: 74 SEX: F : 1950 ARRIVES VIA: Walk-In INFORMANT: Patient, ED PROVIDER(S): Fly Martinez DO CHIEF COMPLAINT: Difficulty breathing HPI: The patient is a 74-year-old female who presented to the emergency department from the pulmonary office for an evaluation of difficulty breathing. The patient states that she has been having difficulty breathing over the last several weeks. She has a history of COVID-pneumonia in the past. The patient states that ever since that time she has been noticing trouble breathing especially with exertion. The patient denies having any hemoptysis. She has had a dry cough. The patient denies having any leg swelling but she states when she was in the pulmonary office they felt that she had some swelling in her legs. The patient was able to ambulate at the office but her oxygen saturation dropped to 86%. She was placed on oxygen and sent to the emergency department immediately. ROS: See above HPI for pertinent positives & negatives. A total of 10 systems reviewed and were otherwise negative. PAST MEDICAL HISTORY: See Below PAST SURGICAL HISTORY: See Below FAMILY HISTORY: See Below SOCIAL HISTORY: See Below HOME MEDICATIONS: See Below ALLERGIES: See Below VITALS: See Below PHYSICAL EXAMINATION: GENERAL: Patient is awake alert in no acute distress patient is resting comfortably and showing no signs of anxiety EYES: The conjunctivae are clear. The pupils are round and reactive. EARS, NOSE, MOUTH AND THROAT: The nose is without any evidence of any deformity. NECK: The neck is nontender and supple. RESPIRATORY: Diminished breath sounds are noted throughout. There is no rales rhonchi or wheezing. There is no tachypnea or conversational dyspnea. CARDIOVASCULAR: Regular rate and rhythm noted there no murmurs rubs or gallops normal S1 normal S2. GASTROINTESTINAL: The abdomen is soft. Abdomen is nontender. MUSCULOSKELETAL/EXTREMITIES: There is no evidence of gross deformity full range of motion is noted in the hips and shoulders. SKIN: There is no obvious evidence of any rash. There are no petechiae, pallor or cyanosis noted. NEUROLOGIC: Patient is awake alert and oriented x3 MEDICAL DECISION MAKING: The patient is a 74-year-old female who presented to the emergency department for an evaluation of difficulty breathing. The patient was at her pulmonary physicians office. The patient was sent directly to the emergency department because she had an episode of hypoxia with exertion. She was placed on oxygen. She is not normally on oxygen but on nasal cannula oxygen she was much more comfortable and oxygen saturation was acceptable. It was unclear if the patient was suffering from venous thromboembolic disease. She had further workup which included a D-dimer. The D-dimer took an extended period of time to be returned but ultimately was positive. This led to a CT of the chest. CT appears to be consistent with pneumonia but not consistent with venous thromboembolic disease. I discussed the patient's laboratory and radiographic studies with her. I discussed her condition with the on-call hospitalist group. They have agreed to evaluate the patient in the emergency department for further management and disposition. Triage Nursing notes reviewed. Prior medical records reviewed Vital Signs: reviewed and remarkable for no significant abnormalities Differential diagnosis: Reactive airway disease, pneumonia, pneumothorax, COPD, CHF, infections, cardiac ischemia, pulmonary embolism, musculoskeletal, gastrointestinal, as well as other pathologies. ER treatment provided: See below Diagnostics interpreted by me: ECG: EKG was obtained in the emergency department. My interpretation is normal sinus rhythm at 83 bpm. There is no ectopy. There is no acute ST segment abnormalities noted. This was compared to a tracing from September 25, 2020. No changes were noted. Cardiac Monitoring: An order was placed for continuous cardiac monitoring. The monitor shows a rate of 80 bpm with sinus rhythm. Laboratory studies: As stated above and show below. Imaging studies: See below. Radiographic imaging was reviewed by myself Consultation(s): I discussed this case with Dr. Adams who is on-call for the [facility] hospitalist group. Past Med/Surg History Problem List (Updated 07/06/24 @ 16:39 by Hiren Keenan MD) CAP (community acquired pneumonia) COPD (chronic obstructive pulmonary disease) Cough Pneumonia due to 2019 novel coronavirus (Acute) Memory loss Anxiety and depression Hypoxia (Acute) COVID-19 Social History Smoking Status: Former smoker Tobacco Type: Cigarettes Age Started Using Tobacco: 20; Age Quit Using Tobacco: 64; packs per day: 1; Second Hand Exposure: Yes; Do You Dip or Chew Tobacco: No; Hx Alcohol Use: No Hx Substance Use: No Preferred Language: Bengali Communication Ability: Effective Blocking Machine Tender Required: No Beliefs That Will Affect Care: None Current Living Situation: Personal Care Facility Feels Safe at Home: Yes Assistive Devices: Oxygen - Continuous Allergies Allergies Allergy/AdvReac Type Severity Reaction Status Date / Time No Known Allergies Allergy Unverified 07/01/24 15:08 Home Meds Home Medications Medication Instructions Recorded Confirmed mirtazapine 15 mg tablet 15 mg PO HS 09/25/20 07/01/24 venlafaxine 150 mg 300 mg PO QAM 09/25/20 07/01/24 capsule,extended release 24 hr acetaminophen 325 mg capsule 650 mg PO QID PRN 06/01/24 07/01/24 albuterol sulfate 90 mcg/actuation 2 puff inhalation Q6H PRN 06/01/24 07/01/24 aerosol inhaler atorvastatin 10 mg tablet 10 mg PO DAILY 06/01/24 07/01/24 fexofenadine 180 mg tablet 180 mg PO DAILY PRN 06/01/24 07/01/24 Previous Rx's Medication Instructions Recorded umeclidinium 62.5 mcg-vilanterol 1 inh inhalation DAILY #60 ea 06/04/24 25 mcg/actuation powdr for inhalation (Anoro Ellipta) Results & Data (ED) Vital Signs Vital Signs - 24 hr 07/06/24 11:36 07/06/24 11:38 07/06/24 13:54 Temperature 36.6 C Temperature Source Temporal Artery Scan Pulse Rate 89 Pulse Rate [Apical] 78 Pulse Rhythm [Apical] Regular Pulse Strength [Apical] Normal Respiratory Rate 26 H 20 Respiratory Effort / Characteristics Non-Labored Spontaneous Respiratory Depth Normal Respiratory Pattern Regular Regular Blood Pressure 115/68 Blood Pressure [Right Arm] 164/69 H Blood Pressure Mean 83 Blood Pressure Mean [Right Arm] 100 Blood Pressure Position [Right Arm] Lying Pulse Oximetry 82 L 90 96 Oxygen Delivery Method Room Air Nasal Cannula Nasal Cannula Oxygen Flow Rate 4 4 Sepsis Recent Fever Within 48 Hours No Sepsis New/Unexplained Change in Mental Status No Sepsis Action Taken by Nursing No Action Required 07/06/24 14:23 07/06/24 14:32 07/06/24 15:30 Temperature Temperature Source Pulse Rate 76 Pulse Rate [Apical] 73 80 Pulse Rhythm [Apical] Regular Regular Pulse Strength [Apical] Normal Normal Respiratory Rate 22 20 Respiratory Effort / Characteristics Non-Labored Spontaneous Non-Labored Spontaneous Respiratory Depth Normal Normal Respiratory Pattern Regular Regular Blood Pressure Blood Pressure [Right Arm] 137/82 143/78 H Blood Pressure Mean Blood Pressure Mean [Right Arm] 100 99 Blood Pressure Position [Right Arm] Semi-fowlers Lying Pulse Oximetry 96 96 Oxygen Delivery Method Nasal Cannula Nasal Cannula Oxygen Flow Rate 4 4 Sepsis Recent Fever Within 48 Hours Sepsis New/Unexplained Change in Mental Status Sepsis Action Taken by [facility] Medications Current Medication List: was personally reviewed by me Laboratory Data Attestation: I reviewed the patient's lab results. 07/06/24 11:53 07/06/24 11:53 Lab Results 07/06/24 07/06/24 07/06/24 Range/Units 11:53 12:00 14:23 WBC 8.08 (4.8-10.8) K/ul RBC 4.71 (4.20-5.40) M/uL Hgb 13.8 (12.0-16.0) g/dl Hct 41.5 (37.0-47.0) % MCV 88.1 (80.0-100.0) fL MCH 29.3 (25.0-34.0) pg MCHC 33.3 (32.0-36.0) g/dL RDW Std Deviation 45.2 (36.4-46.3) fL RDW Coeff of Princess 13.9 (11.5-14.5) % Plt Count 53 L (130-400) K/uL MPV 11.8 (9.4-12.4) fL Neutrophils % (Manual) 45 % Lymphocytes % (Manual) 29 % Reactive Lymphs % (Man) 21 % Monocytes % (Manual) 5 % Neutrophils # (Manual) 3.64 (1.40-6.50) K/uL Total Absolute Neuts 3.64 (1.4-6.5) K/uL Lymphocytes # (Manual) 2.34 (1.2-3.4) K/uL Reactive Lymphs # 1.70 K/uL Total Abs Lymphocytes 4.04 H (1.2-3.4) K/uL Monocytes # (Manual) 0.40 (0.11-0.59) K/uL PT Cancelled 10.6 INR Cancelled 1.0 APTT Cancelled 27 PTT Ratio Cancelled 1.0 D-Dimer Cancelled 810 H* VBG pH 7.37 (7.36-7.41) VBG pCO2 45 (38-50) mmHg VBG pO2 20 mmHg VBG HCO3 26 mmol/L VBG O2 Saturation < 60.0 % VBG Base Excess 0.3 mEq/L Sodium 139 (136-145) mmol/L Potassium 4.4 (3.5-5.1) mmol/L Chloride 107 (98-107) mmol/L Carbon Dioxide 23 (21-32) mmol/L Anion Gap 9 (3-11) BUN 18 (6-23) mg/dl Creatinine 1.09 (0.6-1.2) mg/dl Est Cr Clr Drug Dosing 53.7 ml/min Est GFR ( Amer) 57.9 ml/min Est GFR (Non-Af Amer) 50.0 ml/min BUN/Creatinine Ratio 16.5 (10-20) Glucose 101 H (70-99(Fasting)) mg/dl Calcium 9.3 (8.6-10.3) mg/dl Magnesium 1.9 (1.7-2.4) mg/dl Total Bilirubin 0.4 (0.2-1.0) mg/dl AST 16 (13-39) U/L ALT 15 (7-52) U/L Alkaline Phosphatase 74 (34-104) U/L Troponin I High Sens 3.3 (0-14) pg/ml B-Natriuretic Peptide 58 (0-100) pg/ml Total Protein 7.3 (6.0-8.3) gm/dl Albumin 4.2 (3.4-5.0) gm/dl Globulin 3.1 (2.5-4.0) gm/dl Albumin/Globulin Ratio 1.4 (0.9-2) Adenovirus (PCR) (NotDetected) B. pertussis DNA (PCR) (NotDetected) B.parapertussis DNA PCR (NotDetected) C. pneumoniae DNA (PCR) (NotDetected) Coronavirus OC43 (PCR) (NotDetected) Coronavirus HKU1 (PCR) (NotDetected) Coronavirus 229E (PCR) (NotDetected) SARS-CoV-2 (PCR) (NotDetected) Coronavirus NL63 (PCR) (NotDetected) Human Metapneumovir PCR (NotDetected) Influenza Type A (PCR) (NotDetected) Influenza Type B (PCR) (NotDetected) M. pneumoniae (PCR) (NotDetected) Parainfluenza 1 (PCR) (NotDetected) Parainfluenza 2 (PCR) (NotDetected) Parainfluenza 3 (PCR) (NotDetected) Parainfluenza 4 (PCR) (NotDetected) RSV (PCR) (NotDetected) Entero/Rhino (PCR) (NotDetected) 07/06/24 Range/Units Unknown WBC (4.8-10.8) K/ul RBC (4.20-5.40) M/uL Hgb (12.0-16.0) g/dl Hct (37.0-47.0) % MCV (80.0-100.0) fL MCH (25.0-34.0) pg MCHC (32.0-36.0) g/dL RDW Std Deviation (36.4-46.3) fL RDW Coeff of Princess (11.5-14.5) % Plt Count (130-400) K/uL MPV (9.4-12.4) fL Neutrophils % (Manual) % Lymphocytes % (Manual) % Reactive Lymphs % (Man) % Monocytes % (Manual) % Neutrophils # (Manual) (1.40-6.50) K/uL Total Absolute Neuts (1.4-6.5) K/uL Lymphocytes # (Manual) (1.2-3.4) K/uL Reactive Lymphs # K/uL Total Abs Lymphocytes (1.2-3.4) K/uL Monocytes # (Manual) (0.11-0.59) K/uL PT INR APTT PTT Ratio D-Dimer VBG pH (7.36-7.41) VBG pCO2 (38-50) mmHg VBG pO2 mmHg VBG HCO3 mmol/L VBG O2 Saturation % VBG Base Excess mEq/L Sodium (136-145) mmol/L Potassium (3.5-5.1) mmol/L Chloride (98-107) mmol/L Carbon Dioxide (21-32) mmol/L Anion Gap (3-11) BUN (6-23) mg/dl Creatinine (0.6-1.2) mg/dl Est Cr Clr Drug Dosing ml/min Est GFR ( Amer) ml/min Est GFR (Non-Af Amer) ml/min BUN/Creatinine Ratio (10-20) Glucose (70-99(Fasting)) mg/dl Calcium (8.6-10.3) mg/dl Magnesium (1.7-2.4) mg/dl Total Bilirubin (0.2-1.0) mg/dl AST (13-39) U/L ALT (7-52) U/L Alkaline Phosphatase (34-104) U/L Troponin I High Sens (0-14) pg/ml B-Natriuretic Peptide (0-100) pg/ml Total Protein (6.0-8.3) gm/dl Albumin (3.4-5.0) gm/dl Globulin (2.5-4.0) gm/dl Albumin/Globulin Ratio (0.9-2) Adenovirus (PCR) Not Detected (NotDetected) B. pertussis DNA (PCR) Not Detected (NotDetected) B.parapertussis DNA PCR Not Detected (NotDetected) C. pneumoniae DNA (PCR) Not Detected (NotDetected) Coronavirus OC43 (PCR) Not Detected (NotDetected) Coronavirus HKU1 (PCR) Not Detected (NotDetected) Coronavirus 229E (PCR) Not Detected (NotDetected) SARS-CoV-2 (PCR) Not Detected (NotDetected) Coronavirus NL63 (PCR) Not Detected (NotDetected) Human Metapneumovir PCR Not Detected (NotDetected) Influenza Type A (PCR) Not Detected (NotDetected) Influenza Type B (PCR) Not Detected (NotDetected) M. pneumoniae (PCR) Not Detected (NotDetected) Parainfluenza 1 (PCR) Not Detected (NotDetected) Parainfluenza 2 (PCR) Not Detected (NotDetected) Parainfluenza 3 (PCR) Not Detected (NotDetected) Parainfluenza 4 (PCR) Not Detected (NotDetected) RSV (PCR) Not Detected (NotDetected) Entero/Rhino (PCR) Not Detected (NotDetected) Administered Medications Discontinued Medications Ioversol (Optiray 320 125ml) 76 ml IV ONCE ONE Stop: 07/06/24 15:55 Last Admin: 10/01/24 15:54 Dose: 76 ml Documented By: LARA Imaging Data Attestation: I personally reviewed and interpreted this imaging study as follows: My Impression: 1 view chest x-ray was obtained in the emergency department. My interpretation is no free air or definite infiltrate, final report below. Radiologist's Impression: Chest X-Ray 07/06/24 11:34 XR chest 1V not portable CLINICAL HISTORY: Dyspnea TECHNIQUE: Single frontal radiograph of the chest was obtained. Comparison: Comparison is made to chest radiograph 10/21/2023 FINDINGS: No lines and tubes are seen. Calcified aortic knob is seen. Lungs are underinflated but clear. No evidence of pleural effusion or pneumothorax. IMPRESSION: No acute abnormalities and in particular no radiographic evidence of pneumonia. ACT 112: Negative or not required by law. Electronically signed by: Omari Abdi M.D. 07/06/2024 2:00 PM Chest CTA 07/06/24 15:31 CT ANGIOGRAPHY OF THE CHEST, PULMONARY EMBOLUS PROTOCOL CLINICAL HISTORY: Shortness of breath. Evaluate for pulmonary embolus. COMPARISON STUDY: Chest radiograph October 21, 2023. Chest radiograph performed earlier today. TECHNIQUE: Following IV administration of 76 mL of Optiray, helical axial images of the chest were obtained utilizing the pulmonary embolus protocol. Maximal intensity projections and sagittal and coronal reformats were viewed on an independent 3D workstation. IV contrast was administered without complication. Automated exposure control was utilized for the study. A dose lowering technique was utilized adhering to the principles of ALARA. CT DOSE: 799.12 mGy.cm FINDINGS: No pulmonary emboli are identified. The heart is moderately enlarged. There is no thoracic aortic dissection. There is moderate plaque within the thoracic aorta. No pericardial effusion is present. Prominent bilateral hilar lymph nodes are noted. A right hilar node on image 122 of 213 measures 1.9 x 1.2 cm. No pneumothorax or pleural effusion is present. There is moderate emphysema. Multiple pulmonary nodules are noted, including a 6 mm right middle lobe nodule on image 109, an ill-defined right lower lobe 1.1 cm nodule on image 66 and a 1.1 cm right lower lobe nodule on image 40. Scattered subpleural lower lung airspace opacities are present. No central obstructing mass is noted. IMPRESSION: 1. No pulmonary emboli identified. 2. Mild lower lung subpleural airspace opacities suggestive of pneumonia. 3. Multiple pulmonary nodules, measuring up to 1.1 cm. Several of these nodules may be infectious. These nodules are indeterminate and a chest CT in 3 months to ensure resolution/stability is recommended. 4. Emphysema. 5. Moderate cardiomegaly. 6. Prominent bilateral hilar lymph nodes which are likely reactive. These can be assessed on follow-up CT. ACT 112: Positive. There are findings on this exam that require communication between the performing entity and the patient following Patient Test Result Information Act ([place] Act 112) guidelines. Electronically signed by: Lai Biggs M.D. 07/06/2024 4:11 PM Discharge Plan Visit Data Chief Complaint: Referred by Doctor Stated Complaint: TROUBLES BREATHING REFERRED BY DR PURDY Provider: Fly Martinez Discharge Problem: Pneumonia, Hypoxia Patient Disposition: Being Evaluated by Hospitalist Forms Stand Alone Forms: My [facility] Prescriptions Prescriptions: No Action Anoro Ellipta 62.5-25 mcg/actuation blister with device 1 inh inhalation DAILY Qty: 60 3RF atorvastatin 10 mg tablet 10 mg PO DAILY fexofenadine 180 mg tablet 180 mg PO DAILY PRN albuterol sulfate 90 mcg/actuation HFA aerosol inhaler 2 puff inhalation Q6H PRN acetaminophen 325 mg capsule 650 mg PO QID PRN Rx Instructions: as needed for fever venlafaxine 150 mg capsule,extended release 24hr 300 mg PO QAM mirtazapine 15 mg tablet 15 mg PO HS Referrals Referrals: Katalina Hart MD [Primary Care Provider] -
[2024-07-06 13:12] LABS: Adenovirus PCR Not Detected (NotDetected); Bordetella parapertussis PCR Not Detected (NotDetected); Bordetella pertussis PCR Not Detected (NotDetected); Chlamydia pneumoniae PCR Not Detected (NotDetected); Coronavirus 229E PCR Not Detected (NotDetected); Coronavirus CoV-2 (COVID19)PCR Not Detected (NotDetected); Coronavirus HKU1 PCR Not Detected (NotDetected); Coronavirus NL63 PCR Not Detected (NotDetected); Coronavirus OC43PCR Not Detected (NotDetected); Human Metapneumovirus PCR Not Detected (NotDetected); Influenza A PCR Not Detected (NotDetected); Influenza B PCR Not Detected (NotDetected); Mycoplasma pneumoniae PCR Not Detected (NotDetected); Parainfluenza Virus 1 PCR Not Detected (NotDetected); Parainfluenza Virus 2 PCR Not Detected (NotDetected); Parainfluenza Virus 3 PCR Not Detected (NotDetected); Parainfluenza Virus 4 PCR Not Detected (NotDetected); Respiratory Syncytial VirusPCR Not Detected (NotDetected); Rhinovirus/Enterovirus PCR Not Detected (NotDetected)
[2024-07-06 13:13] LABS: Albumin Level 4.2 gm/dl (3.4-5.0); Bilirubin,Total 0.4 mg/dl (0.2-1.0); Calcium 9.3 mg/dl (8.6-10.3); Magnesium 1.9 mg/dl (1.7-2.4); Potassium 4.4 mmol/L (3.5-5.1)
[2024-07-06 13:16] LABS: ALC (manual) 4.04 K/uL (1.2-3.4); ANC (manual) 3.64 K/uL (1.4-6.5); Lymphocytes # (manual) 2.34 K/uL (1.2-3.4); Lymphocytes % (manual) 29 %; Monocytes % (manual) 5 %; Neutrophils # (manual) 3.64 K/uL (1.40-6.50); Neutrophils % (manual) 45 %; Reactive Lymphocytes % (manual) 21 %
[2024-07-06 13:19] LABS: Albumin Globulin Ratio 1.4 (0.9-2); BUN Creatinine Ratio 16.5 (10-20); Creatinine Clr Calc Pharmacy 53.7 ml/min; Est GFR (African American) 57.9 ml/min; Globulin 3.1 gm/dl (2.5-4.0); Total Protein 7.3 gm/dl (6.0-8.3)
--- NOTE | 2024-07-06 14:02 | XRay Report ---
XR chest 1V not portable CLINICAL HISTORY: Dyspnea TECHNIQUE: Single frontal radiograph of the chest was obtained. Comparison: Comparison is made to chest radiograph 10/21/2023 FINDINGS: No lines and tubes are seen. Calcified aortic knob is seen. Lungs are underinflated but clear. No yamila dence of pleural effusion or pneumothorax. IMPRESSION: No acute abnormalities and in particular no radiographic evidence of pneumonia. ACT 112: Negative or not required by law. Electronically signed by: Omari Abdi M.D. 07/06/2024 2:00 PM
--- NOTE | 2024-07-06 15:12 | Electrocardiogram Report ---
Test Reason : Blood Pressure : */* mmHG Vent. Rate : 83 BPM Atrial Rate : 83 BPM P-R Int : 176 ms QRS Dur : 74 ms QT Int : 362 ms P-R-T Axes : 7 -27 37 degrees QTcB Int : 425 ms Normal sinus rhythm Low voltage QRS Poor R wave progression, consider anterior MA vs. lead placement vs. LVH Abnormal ECG When compared with ECG of 25-Sep-2020 10:43, No significant change was found Confirmed by Jose A Dudley ([id number]) on 07/06/2024 3:12:21 PM Referred By: Juan Antonio Nuñez Confirmed By: Jose A Dudley
[2024-07-06 15:20] LABS: Partial Thromboplastin Time 27 Seconds (21-31); Prothrombin Time 10.6 Seconds (9.0-12.0)
[2024-07-06 15:34] LABS: D Dimer 810 ug/L FEU (0-500)
[2024-07-06] MEDS: OPTIRAY 320 125ml IV ONE (15:54)
--- NOTE | 2024-07-06 16:14 | CT Scan Report ---
CT ANGIOGRAPHY OF THE CHEST, PULMONARY EMBOLUS PROTOCOL CLINICAL HISTORY: Shortness of breath. Evaluate for pulmonary embolus. COMPARISON STUDY: Chest radiograph October 21, 2023. Chest radiograph performed earlier today. TECHNIQUE: Following IV administration of 76 mL of Optiray, helical axial images of the chest were ob tained utilizing the pulmonary embolus protocol. Maximal intensity projections and sagittal and tyrell nal reformats were viewed on an independent 3D workstation. IV contrast was administered without com plication. Automated exposure control was utilized for the study. A dose lowering technique was uti lized adhering to the principles of ALARA. CT DOSE: 799.12 mGy.cm FINDINGS: No pulmonary emboli are identified. The heart is moderately enlarged. There is no thoracic aortic dissection. There is moderate plaque within the thoracic aorta. No pericardial effusion is pr esent. Prominent bilateral hilar lymph nodes are noted. A right hilar node on image 122 of 213 measur es 1.9 x 1.2 cm. No pneumothorax or pleural effusion is present. There is moderate emphysema. Multipl e pulmonary nodules are noted, including a 6 mm right middle lobe nodule on image 109, an ill-defined right lower lobe 1.1 cm nodule on image 66 and a 1.1 cm right lower lobe nodule on image 40. Scatter ed subpleural lower lung airspace opacities are present. No central obstructing mass is noted. IMPRESSION: 1. No pulmonary emboli identified. 2. Mild lower lung subpleural airspace opacities suggestive of pneumonia. 3. Multiple pulmonary nodules, measuring up to 1.1 cm. Several of these nodules may be infectious. Th rachna nodules are indeterminate and a chest CT in 3 months to ensure resolution/stability is recommende d. 4. Emphysema. 5. Moderate cardiomegaly. 6. Prominent bilateral hilar lymph nodes which are likely reactive. These can be assessed on follow-u p CT. ACT 112: Positive. There are findings on this exam that require communication between the performing entity and the patient following Patient Test Result Information Act ([place] Act 112) guidelines. Electronically signed by: Lai Biggs M.D. 07/06/2024 4:11 PM
--- NOTE | 2024-07-06 16:45 | History & Physical Report ---
Date of Service July 06, 2024 Assessment & Plan (1) CAP (community acquired pneumonia): Plan: Acute hypoxic respiratory failure due to community-acquired pneumonia Additionally patient with post-COVID dyspnea CTA with no evidence of PE, lower lung subpleural airspace opacities suggestive of pneumonia. Multiple pulmonary nodules possibly infectious but which will require 3-month repeat imaging to ensure stability are present. Likely reactive bilateral hilar lymph nodes. Moderate cardiomegaly, emphysema noted No leukocytosis VBG /26 No MACKENZIE, creatinine clearance 53/GFR 57 BNP is not elevated, troponin is not elevated. Has had some BioFire is negative Patient is hypoxic requiring 4 L nasal cannula. She is recommended for admission for acute hypoxic respiratory failure due to pneumonia. Titrate oxygen to goal 90% - Echo ordered for concerns of RHF (2) COPD (chronic obstructive pulmonary disease): Plan: - Continue inhalerslast PFTs with FEV1 82% predicted, FVC 1 to 2% predicted, FEV1/FVC ratio 60 consistent with mild obstructive disease. Mildly reduced DLCO. - Titrate O2 to 90% Rocephin/azithromycin as noted Pulmonary toilet Methylprednisolone 40 mg twice daily continued, wean as clinically tolerated (3) Anxiety and depression: Plan: Anxiety/depression Continue mirtazapine, venlafaxine Plan DVT prophylaxis: Lovenox Disposition: Medical/surgical CODE STATUS: Full code History of Present Illness Primary Care Provider: Katalina Hart MD Estelle is a 74-year-old female with a past medical history of COPD, anxiety/depression, hyperlipidemia who presents with shortness of breath. Patient was referred to ER from the pulmonary office. He is following pulmonary for post-COVID dyspnea and COPD. Presented to the clinic Denies fevers or chills. Endorses easy exercise fatigue. Endorses dyspnea on exertion but is not sure for how long No chest pain or chest pressure Denies change in sputum production or quality Think she has been a little wheezy walking around Denies night sweats Denies nausea/vomiting/diarrhea Is very concerned if her symptoms are due to post-COVID and to upper portion this could be a new pneumonia versus old COVID Reports a family history of immune hemolytic anemia, her hemoglobin is normal with a normal bilirubin NKDA Quit tobacco 10-15 years ago ETOH rarely, none in many years FUll Code Allergies Allergy/AdvReac Type Severity Reaction Status Date / Time No Known Allergies Allergy Unverified 07/01/24 15:08 Home Medications Medication Instructions Recorded Confirmed Type mirtazapine 15 mg tablet 15 mg PO HS 09/25/20 07/06/24 History venlafaxine 150 mg 300 mg PO UD 09/25/20 07/06/24 History capsule,extended release 24 hr acetaminophen 325 mg capsule 650 mg PO QID PRN pain/fever 06/01/24 07/06/24 History albuterol sulfate 90 mcg/actuation 2 puff inhalation Q6H PRN sob 06/01/24 07/06/24 History aerosol inhaler atorvastatin 10 mg tablet 10 mg PO QAM 06/01/24 07/06/24 History fexofenadine 180 mg tablet 180 mg PO DAILY PRN Allergy 06/01/24 07/06/24 History Symptoms umeclidinium 62.5 mcg-vilanterol 1 inh inhalation DAILY #60 ea 06/04/24 07/06/24 Rx 25 mcg/actuation powdr for inhalation (Anoro Ellipta) Past Med/Surg History Problem List (Updated 07/06/24 @ 16:39 by Hiren Keenan MD) CAP (community acquired pneumonia) COPD (chronic obstructive pulmonary disease) Cough Pneumonia due to 2019 novel coronavirus (Acute) Memory loss Anxiety and depression Hypoxia (Acute) COVID-19 Social History Smoking Status: Former smoker Tobacco Type: Cigarettes Age Started Using Tobacco: 20; Age Quit Using Tobacco: 64; packs per day: 1; Second Hand Exposure: Yes; Do You Dip or Chew Tobacco: No; Hx Alcohol Use: No Hx Substance Use: No Preferred Language: Jamaican Communication Ability: Effective Sugar Mixer Required: No Beliefs That Will Affect Care: None Current Living Situation: Personal Care Facility Feels Safe at Home: Yes Assistive Devices: Oxygen - Continuous Physical Exam Physical Exam: General: A&Ox3. NAD. Cooperative. HEENT: Atraumatic, normocephalic. Vision/hearing grossly intact Pulm: Clear bilaterally, some end expiratory wheezing in the lower lung henderson on forced expiration. Symmetrical chest rise. No increased work of breathing. No respiratory distress. Cardiac: RRR, -mrg. Radial pulses intact and symmetrical. Abdominal: Nontender, nondistended, soft. BS present. Extremities: Right greater than left ankle edema Results & Data Results & Data Vital Signs (Past 12 Hours) Vital Signs Temp Pulse Pulse Resp BP BP Pulse Ox 07/06/24 15:30 80 20 143/78 H 96 07/06/24 14:32 73 22 137/82 96 07/06/24 14:23 76 07/06/24 13:54 78 20 164/69 H 96 07/06/24 11:38 90 07/06/24 11:36 36.6 C 89 26 H 115/68 82 L O2 Del Method O2 Flow Rate 07/06/24 15:30 Nasal Cannula 4 07/06/24 14:32 Nasal Cannula 4 07/06/24 14:23 07/06/24 13:54 Nasal Cannula 4 07/06/24 11:38 Nasal Cannula 4 07/06/24 11:36 Room Air PG Care Time/CCT Total # of Minutes Spent Total Time Spent with Patient: Total time spent is greater than 50% in coordination of care (as documented) at patient's floor/unit and/or counseling patient: Coding Level of Care Code 77986 INT INP/OBS CARE 375MIN Diagnoses CAP (community acquired pneumonia) J18.9 COPD (chronic obstructive pulmonary disease) J44.9 Anxiety and depression F41.9; F32.9
[2024-07-06] MEDS: cefTRIAXone SODIUM 2,000 MG/50 ML BAG IV STA (17:17)
[2024-07-06] MEDS ORDERED: ALBUT/IPRATROP 3MG/0.5MG NEB 3 ML VIAL NEB PRN (21:09)
[2024-07-06] MEDS ORDERED: ALBUTEROL HFA 8 GM INHALER INH PRN (21:09)
[2024-07-06] MEDS ORDERED: ACETAMINOPHEN 325 MG TAB PO PRN (21:09)
[2024-07-06] MEDS: AZITHROMYCIN 250 MG TAB PO ONE (21:59)
[2024-07-06] MEDS: methylPREDNISolone 40 MG in SYRINGE 0 ML IV SCH (21:59)
[2024-07-06] MEDS: guaiFENesin 600 MG TABCR PO SCH (22:00)
[2024-07-06] MEDS: ENOXAPARIN INJ 40 MG/0.4 ML SYR SQ SCH (22:00)
[2024-07-06] MEDS: MIRTAZAPINE TAB 15 MG TAB PO SCH (22:01)
[2024-07-07 06:48] LABS: BUN Creatinine Ratio 16.4 (10-20); Calcium 9.1 mg/dl (8.6-10.3); Creatinine Clr Calc Pharmacy 53.4 ml/min; Est GFR (African American) 57.3 ml/min; Est GFR (Non-African American) 49.4 ml/min; Hematocrit (blood only) 43.1 % (37.0-47.0); Hemoglobin 13.8 g/dl (12.0-16.0); Mean Corpuscular Hemoglobin 28.9 pg (25.0-34.0); Mean Corpuscular Volume 90.2 fL (80.0-100.0); Mean Platelet Volume 11.9 fL (9.4-12.4); Platelet Count 49 K/uL (130-400); Potassium 4.9 mmol/L (3.5-5.1); RDW Coefficient of Variation 13.9 % (11.5-14.5); RDW Standard Deviation 45.9 fL (36.4-46.3); Red Blood Count 4.78 M/uL (4.20-5.40)
[2024-07-07 06:52] LABS: ALC (manual) 2.84 K/uL (1.2-3.4); ANC (manual) 5.02 K/uL (1.4-6.5); Lymphocytes # (manual) 1.62 K/uL (1.2-3.4); Lymphocytes % (manual) 20 %; Monocytes # (manual) 0.24 K/uL (0.11-0.59); Monocytes % (manual) 3 %; Neutrophils # (manual) 5.02 K/uL (1.40-6.50); Neutrophils % (manual) 62 %; Reactive Lymphocytes # (manual) 1.22 K/uL; Reactive Lymphocytes % (manual) 15 %
[2024-07-07] MEDS: ATORVASTATIN 10 MG TAB PO SCH (08:27)
[2024-07-07] MEDS: AZITHROMYCIN 250 MG TAB PO SCH (08:28)
[2024-07-07] MEDS: UMECLIDINIUM/VILANTEROL 62.5/25MCG 7 PUFFS/INHALER INH SCH (08:28)
[2024-07-07] MEDS: VENLAFAXINE HCL XR 150 MG CAPXR PO SCH (08:28)
--- NOTE | 2024-07-07 12:05 | XCELERA ---
[id number]
--- NOTE | 2024-07-07 12:55 | Hospitalist Progress Note ---
<Statement entered by Milagros Lee MD - 07/07/24 17:23> I have reviewed vital signs, chart notes, labs and imaging. I have personally seen, evaluated and examined the patient. I have also discussed the management of the patient with the NURIA and I agree with the exam findings documented in the history and physical examination and the documented assessment and plan unless otherwise stated below. on my exam she is awake alert oriented however she has a vague historian, respirations are nonlabored there is no wheezing she has mild scattered crackles especially in both bases, heart is regular no murmurs rubs or gallops, no JVD, she has mild bilateral pitting edema today her legs appear symmetric there is no calf tenderness or swelling I think DVT is unlikely Hypoxia unclear whether acute or chronic, appears to have pneumonia based on chest CT findings pulmonary nodules probably are reactive however follow-up chest CT in 3 months is indicated we will continue antibiotics for Community-acquired pneumonia, broaden coverage if not clinically responding. she is not wheezing today and if in COPD exacerbation it is mild and/or resolving, will decrease steroids echo results and low BNP are reassuring is unlikely that she has heart failure, pulmonary artery pressure was not estimated on the current echo but RV function appeared intact overnight oximetry screening for LAUREL is planned she has CKD 3 presuming creatinine is at her baseline thrombocytopenia is noted but no CBC since several years ago, unclear whether acute or chronic. could be related to pneumonia, recent viral syndrome she did have COVID 3 to 4 weeks ago, reviewed her medication list and none are suspicious for causing drug-induced thrombocytopenia, possible splenomegaly l imited view on CT, ITP or myelodysplasia is possible. white blood count is normal and she has anemia but appears to be at baseline. - This should be followed up in primary care and further workup if nonresolving Date of Service July 07, 2024 Assessment & Plan (1) CAP (community acquired pneumonia): Plan: Acute hypoxic respiratory failure due to community-acquired pneumonia PMHx COPD, post-COVID dyspnea; presented with shortness of breath. CTA no evidence of PE, pulmonary nodules noted and likely infectious/reactive hilar lymph nodes. Emphysema, cardiomegaly. Lower lung subpleural airspace opacities suggestive of pneumonia. No leukocytosis on admission. - VBG /26 - No MACKENZIE, creatinine clearance 53/GFR 57 - BNP is not elevated, troponin is not elevated. D-dimer elevated, CTA no evidence of PE and no clinical symptoms suggestive of DVT. - BioFire is negative - Procalcitonin < 0.02 - Patient is hypoxic requiring 2 L nasal cannula, up from baseline which she normally requires none, but has decreased from 4L since admission. Titrate oxyg en to goal 90% - Echo 07/07: LV systolic function normal, grade 1 diastolic dysfunction, LVH, LA dilated, EF 60 to 65% (2) COPD (chronic obstructive pulmonary disease): Plan: H/o COPD, most recent PFTs with FEV1 82% predicted, FVC 1 to 2% predicted, FEV1/FVC ratio 60 consistent with mild obstructive disease. Mildly reduced DLCO. Does not require oxygen at home. - Continue inhalers - Titrate O2 to 90% Continue Rocephin/azithromycin Pulmonary toilet Continue methylprednisolone 40 mg twice daily continued, wean as clinically tolerated (3) Thrombocytopenia: Plan: No active bleeding, no history of recent trauma; FmHx hemolytic anemia, however hemoglobin and bilirubin WNL - Platelets 49 K/uL - Given COPD and hypoxia, would expect elevated platelets versus low - Quit tobacco 10 to 15 years ago, states she does not drink alcohol - CT chest has minimal view of spleen; No history of abdominal imaging. Discussion with radiologist; possible mild enlargement of spleen on parts that are able to be visualized; pt to follow-up outpatient regarding platelet count; possibility to normalize following discharge; R/o drug-induced VS infection induced VS microangiopathic hemolytic VS ITP (4) Anxiety and depression: Plan: Anxiety/depression Continue mirtazapine, venlafaxine Plan Sleep apnea? - Pt admits to snoring at night; Pulse ox overnight study ordered to determine if need for outpatient sleep study DVT prophylaxis: Lovenox Disposition: Possible discharge tomorrow CODE STATUS: Full code Admission and Anticipated Discharge Date Admission Date: July 06, 2024 Subjective Patient seen laying in bed at time of visit. Continues to experience mild shortness of breath, and dry cough. Wearing NC oxygen. Denies headache, chest pain, chest pressure, edema, N/V, abdominal pain. Denies calf pain or tenderness. Review of Systems Respiratory: + cough (Nonproductive) and + dyspnea Cardiovascular: no chest pain, no palpitations and no calf pain Gastrointestinal: no abdominal pain, no nausea and no vomiting Physical Exam Respiratory: Slightly diminished breath sounds, clear bilaterally. Normal effort. Wearing NC Cardiovascular: RRR, no murmur, no edema Gastrointestinal (Abdomen): normal bowel sounds, soft, nontender, no hepatosplenomegaly Musculoskeletal: No calf erythema, edema, size discrepancy. No tenderness to palpation Skin: no purpura Results & Data Results & Data Vital Signs (Past 12 Hours) Vital Signs Temp Pulse Resp BP Pulse Ox O2 Del Method O2 Flow Rate 07/07/24 07:55 Nasal Cannula 2 07/07/24 07:15 36.4 C L 73 16 106/70 92 Nasal Cannula 2 Laboratory Results CBC: WBC 8.1, Hb 13.8, HCT 43.1, PLT 49, MPV 11.9, no differential BMP: WNL with exception of glucose 152 Diagnostic Findings Echocardiogram (07/07/2024): Left ventricular systolic function is normal. Grade 1 diastolic dysfunction. Moderate concentric left ventricle hypertrophy. Right ventricle normal size and function. Left atrium mildly dilated. PG Care Time/CCT Total # of Minutes Spent Total Time Spent with Patient: Total time spent is greater than 50% in coordination of care (as documented) at patient's floor/unit and/or counseling patient: Coding Level of Care Code None Diagnoses CAP (community acquired pneumonia) J18.9 COPD (chronic obstructive pulmonary disease) J44.9 Thrombocytopenia D69.6 Anxiety and depression F41.9; F32.9
[2024-07-07] MEDS: cefTRIAXone SODIUM 2,000 MG/50 ML BAG IV SCH (16:48)
--- NOTE | 2024-07-07 17:23 | Billing Data ---
Date of Service July 07, 2024 Coding Level of Care Code 98569 INT INP/OBS CARE
[2024-07-07 17:57] LABS: Appearance Urine Clear (Clear); Bilirubin Urine Negative (Negative); Blood Urine Negative (Negative); Color Urine Yellow; Glucose Urine UA Negative (Negative); Ketones Urine Negative (Negative); Leukocyte Esterase Urine Negative (Negative); Nitrite Urine Negative (Negative); Protein Urine Negative (Negative); Urobilinogen Urine Negative (Negative)
[2024-07-07 21:18] VITALS: TEMP 97.7
[2024-07-08 05:56] LABS: Basophils # (auto) 0.01 K/uL (0.00-0.20); Basophils % (auto) 0.1 %; Hemoglobin 12.7 g/dl (12.0-16.0); Immature Granulocytes # (auto) 0.11 K/uL (0.01-0.20); Lymphocytes # (auto) 2.88 K/uL (1.20-3.40); Lymphocytes % (auto) 26.3 %; Mean Corpuscular Hemoglobin 28.9 pg (25.0-34.0); Mean Corpuscular Hgb Conc 31.8 g/dL (32.0-36.0); Mean Corpuscular Volume 90.9 fL (80.0-100.0); Mean Platelet Volume 11.3 fL (9.4-12.4); Monocytes # (auto) 0.92 K/uL (0.11-0.59); Monocytes % (auto) 8.4 %; Neutrophils # (auto) 7.05 K/uL (1.40-6.50); Neutrophils % (auto) 64.2 %; Platelet Count 72 K/uL (130-400); RDW Coefficient of Variation 13.8 % (11.5-14.5); White Blood Count 10.97 K/ul (4.8-10.8)
[2024-07-08 06:07] LABS: BUN Creatinine Ratio 25.6 (10-20); Creatinine Clr Calc Pharmacy 50.2 ml/min; Potassium 4.5 mmol/L (3.5-5.1)
[2024-07-08] MEDS: SODIUM CHLORIDE 0.9% 500 ML IV ONE (10:24)
--- NOTE | 2024-07-08 10:49 | Discharge Summary ---
<Statement entered by Milagros Lee MD - 07/08/24 18:55> I have reviewed vital signs, chart notes, labs and imaging. I have personally seen, evaluated and examined the patient. I have also discussed the management of the patient with the NURIA and I agree with the exam findings documented in the history and physical examination and the documented assessment and plan unless otherwise stated below. On my exam Estelle is awake and alert continues to be a vague historian lungs are clear to auscultation bilaterally except for bibasilar fine crackles, she has no wheezing, no JVD or lower extremity edema. this admission we treated for pneumonia with ceftriaxone and azithromycin, she will complete a total 7-day course for this. She had Solu-Medrol on admission however no wheezing yesterday or today and we have stopped the steroids at time of discharge. She does have significant underlying COPD and suspect some chronic hypoxia. Obtained echocardiogram which was notable for normal LVEF, grade 1 diet diastolic dysfunction, normal RV function, pulmonary artery pressure was not estimated. BNP was low, based on this data I think heart failure is unlikely contributor to her dyspnea. We did obtain overnight oximetry - she was on room air for 5 minutes but was hypoxic with sat of 87% at this time so after 5 minutes she was placed on 1 L oxygen for the duration of the study. she had only 1 desat for 2 minutes otherwise was pretty normal. multiple pulmonary nodules on chest CT are likely inflammatory however she should have a follow-up chest CT in 3 months to ensure resolution. She has some thrombocytopenia which is improving and may be related to infection, repeat CBC as outpatient is recommended Discharge Summary Date of Service July 08, 2024 Principal Dx & Hospital Course #1 = Principal Diagnosis (1) CAP (community acquired pneumonia): Acute hypoxic respiratory failure due to community-acquired pneumonia PMHx COPD, post-COVID dyspnea; presented with shortness of breath. CTA no evidence of PE, pulmonary nodules noted and likely infectious/reactive hilar lymph nodes. Emphysema, cardiomegaly. Lower lung subpleural airspace opacities suggestive of pneumonia. No leukocytosis on admission. - VBG /26 - No MACKENZIE, creatinine clearance 53/GFR 57 - BNP not elevated, troponin not elevated. D-dimer was elevated, CTA showed no evidence of PE and no clinical symptoms suggestive of DVT. - BioFire negative - Procalcitonin < 0.02 - Patient experienced hypoxia, was requiring 2 L nasal cannula, which was up from baseline which she normally required none, but had decreased from 4L since admission. Oxygen goal of 90%. - Echo 07/07: LV systolic function normal, grade 1 diastolic dysfunction, LVH, LA dilated, EF 60 to 65% - Two-step test completed; requiring 2 L oxygen via nasal cannula with activity. - Home O2 ordered (2) COPD (chronic obstructive pulmonary disease): H/o COPD, most recent PFTs with FEV1 82% predicted, FVC 1 to 2% predicted, FEV1/FVC ratio 60 consistent with mild obstructive disease. Mildly reduced DLCO. Previously did not require oxygen at home. - Continue inhalers - Goal O2 to 90% Was on Rocephin/azithromycin in hospital; will continue Azithromycin for 5 days total (stop 07/11), and complete Cefuroxime 500mg BID x 7 days. Was on IV methylprednisolone 40 mg twice daily; completed course and no clinical need to taper given dose and duration. No wheezing. (3) Thrombocytopenia: No active bleeding, no history of recent trauma; FmHx hemolytic anemia, however hemoglobin and bilirubin WNL - Platelets 49 K/uL - Given COPD and hypoxia, would expect elevated platelets versus low - Quit tobacco 10 to 15 years ago, states she does not drink alcohol - CT chest has minimal view of spleen; No history of abdominal imaging. Discussion with radiologist; possible mild enlargement of spleen on parts that are able to be visualized; pt to follow-up outpatient regarding platelet count; possibility to normalize following discharge; R/o drug-induced VS infection induced VS microangiopathic hemolytic VS ITP (4) Anxiety and depression: Anxiety/depression Continue mirtazapine, venlafaxine Plan Sleep apnea? - Pt admits to snoring at night; Pulse ox overnight study completed DVT prophylaxis: Lovenox Disposition: Medically stable for discharge, discharge today CODE STATUS: Full code Notes For Next Care Provider Patient found to have multiple nodules on chest CT; suspected to be infectious in nature, however would recommend following this as patient has not had prior imaging of chest. Also found to have thrombocytopenia on labs. No prior labs revealed this finding. Minimal view of spleen was obtained on chest CT and question whether or not spleen was enlarged. Possible to that this was a reaction to the pneumonia, however would recommend following up with repeat labs in 1 to 2 weeks. Admission HPI Per Admitting Provider Estelle is a 74-year-old female with a past medical history of COPD, anxiety /depression, hyperlipidemia who presents with shortness of breath. Patient was referred to ER from the pulmonary office. He is following pulmonary for post-COVID dyspnea and COPD. Presented to the clinic Denies fevers or chills. Endorses easy exercise fatigue. Endorses dyspnea on exertion but is not sure for how long No chest pain or chest pressure Denies change in sputum production or quality Think she has been a little wheezy walking around Denies night sweats Denies nausea/vomiting/diarrhea Is very concerned if her symptoms are due to post-COVID and to upper portion this could be a new pneumonia versus old COVID Reports a family history of immune hemolytic anemia, her hemoglobin is normal with a normal bilirubin NKDA Quit tobacco 10-15 years ago ETOH rarely, none in many years Full Code Admission Exam Per Admitting Provider General: A&Ox3. NAD. Cooperative. HEENT: Atraumatic, normocephalic. Vision/hearing grossly intact Pulm: Clear bilaterally, some end expiratory wheezing in the lower lung henderson on forced expiration. Symmetrical chest rise. No increased work of breathing. No respiratory distress. Cardiac: RRR, -mrg. Radial pulses intact and symmetrical. Abdominal: Nontender, nondistended, soft. BS present. Extremities: Right greater than left ankle edema Discharge Exam Respiratory normal respiratory effort, lungs clear to auscultation Wearing nasal cannula Cardiovascular RRR, no murmur, no edema Gastrointestinal (Abdomen) normal bowel sounds, soft, nontender, no hepatosplenomegaly Musculoskeletal Bilateral lower extremities without calf size discrepancy, no tenderness to palpation, no erythema. Trace pitting edema. Skin no purpura Discharge Plan Discharge Items Patient Disposition: Home - Self-Care Reason For Visit: PNEUMONIA Discharge Diagnosis: Hypoxic respiratory failure due to CAP COPD Activity: Resume your previous activity Activity Comment: Use 2L O2 via NC with activity Non-emergency contact: Primary Care Provider Call non-emergency contact if: you have any medication questions and your symptoms worsen Follow-up/Referrals: Katalina Hart MD [Primary Care Provider] - (Please follow-up in 1 week.) Diet: Regular Addtl Attending Provider Instructions: You were diagnosed and treated for pneumonia. Imaging of your chest revealed no blood clots, but did show pulmonary nodules so we recommend that you follow-up with your primary care provider regarding this finding. Your platelet count was found to be low. We recommend following up with your primary care provider to further investigate the cause for this. You were started on antibiotics to treat pneumonia. You were started on on steroids, and continued at home inhalers for COPD. You should complete the entire course of the antibiotics and steroids as prescribed. You did require oxygen via nasal cannula that was able to be weaned to 2 L from previously 4 L. Testing with respiratory therapy concluded that you do require 2 L of oxygen via nasal cannula with any activity. Follow-up with your PCP in 1 week to evaluate chest CT findings and repeat CBC. Pending Studies at Discharge: No Stand-Alone Forms: [facility], Smoking Cessation Medications and DC Order Prescriptions: New azithromycin 250 mg Tablet 250 mg PO QAM 3 Days Qty: 3 0RF cefuroxime axetil 500 mg tablet 500 mg PO BID 7 Days Qty: 14 0RF Continued Anoro Ellipta 62.5-25 mcg/actuation blister with device 1 inh inhalation DAILY Qty: 60 3RF atorvastatin 10 mg tablet 10 mg PO QAM fexofenadine 180 mg tablet 180 mg PO DAILY PRN (Reason: Allergy Symptoms) albuterol sulfate 90 mcg/actuation HFA aerosol inhaler 2 puff inhalation Q6H PRN (Reason: sob) acetaminophen 325 mg capsule 650 mg PO QID PRN (Reason: pain/fever) Rx Instructions: as needed for fever venlafaxine 150 mg capsule,extended release 24hr 300 mg PO UD Rx Instructions: 300 mg (150 mgx2) po qam Pt isn't sure of this medication. last filled 06/11 for 30 day supply mirtazapine 15 mg tablet 15 mg PO HS Discharge Orders: Discharge Order (Routine); Ordered 07/08/24 Ordered By: Miranda Epstein Admission Data Admit Date/Time: 07/06/24 16:47 Attending Provider: Milagros Lee Admit Provider: Hiren Keenan Primary Care Provider: Katalina Hart Other Providers: Hiren Keenan Other Interventions: Discharge Summary Assessment (RN) Last Done: 07/08/24 12:27 Hospital Stay Data Consultations 07/06/24 16:34 ED Decision to Admit Stat Diagnostic Imagining Performed 07/06/24 15:31 CT angio chest PE protocol Stat Discharge Instructions Given to Patient (Per Discharging Provider) You were diagnosed and treated for pneumonia. Imaging of your chest revealed no blood clots, but did show pulmonary nodules so we recommend that you follow-up with your primary care provider regarding this finding. Your platelet count was found to be low. We recommend following up with your primary care provider to further investigate the cause for this. You were started on antibiotics to treat pneumonia. You were started on on steroids, and continued at home inhalers for COPD. You should complete the entire course of the antibiotics and steroids as prescribed. You did require oxygen via nasal cannula that was able to be weaned to 2 L from previously 4 L. Testing with respiratory therapy concluded that you do require 2 L of oxygen via nasal cannula with any activity. Follow-up with your PCP in 1 week to evaluate chest CT findings and repeat CBC. Total Time Total Time Spent Total Time Spent (In Minutes): 25 minutes Coding Level of Care Code None Diagnoses CAP (community acquired pneumonia) J18.9 COPD (chronic obstructive pulmonary disease) J44.9 Thrombocytopenia D69.6 Anxiety and depression F41.9; F32.9
[2024-07-08 12:28] VITALS: BP 109/67; PULSE 73; RESP 16; O2SAT 93
--- NOTE | 2024-07-08 18:57 | Billing Data ---
Date of Service July 08, 2024 Coding Level of Care Code 91423 IN/OBS DISCH 30 MIN/LESS
== END 2024-07-08 14:39 | disposition home or self-care (01) | DRG 193 ==
LOC: ED 11:30 → 3W 16:47 → SUATTDRO 16:47 → 3W 20:49

== ENCOUNTER 2025-09-18 13:41 | Inpatient (IN) ==
--- NOTE | 2025-09-18 14:02 | Emergency Department Note ---
Impression & Plan Acute exacerbation of chronic obstructive pulmonary disease (COPD), Acute hypoxic respiratory failure, Shortness of breath ED Provider Note NAME: ELÍAS GARRISON AGE: 75 SEX: F : 1950 ARRIVES VIA: Ambulance INFORMANT: Patient ED PROVIDER(S): Francesco Callahan DO CHIEF COMPLAINT: Shortness of breath HPI: Patient is a 75-year-old female with a past medical history of COPD chronically on 1 L nasal cannula who presents to the ER for shortness of breath brought in by EMS. She was found to be hypoxic this morning as she had increased shortness of breath. She was placed on 10 L as she was at 80% on 1 L. She denies any new cough or congestion. No chest pain. No belly pain. No nausea, vomiting or diarrhea. No dysuria, urgency or frequency. No other exacerbating or remitting factors at this time. ADDITIONAL HISTORY OBTAINED: Per HPI Chronic Medical/Social Conditions Affecting Care: Per HPI PAST MEDICAL HISTORY:See Below PAST SURGICAL HISTORY:See Below FAMILY HISTORY:See Below SOCIAL HISTORY:See Below HOME MEDICATIONS:See Below ALLERGIES:See Below VITALS:See Below PHYSICAL EXAMINATION: GENERAL: Sitting up in bed, alert, chronically ill-appearing on nasal cannula 5 L EYE EXAM: normal conjunctiva. PERRL and EOM's grossly intact. OROPHARYNX: no exudate, no erythema, lips, buccal mucosa, and tongue normal and mucous membranes are moist NECK: supple, no nuchal rigidity, no adenopathy, non-tender LUNGS: Diffuse wheezing bilaterally. Normal chest wall mechanics HEART: no murmurs, S1 normal and S2 normal ABDOMEN: abdomen soft, non-tender, normo-active bowel sounds, no masses, no rebound or guarding. BACK: Back is symmetrical on inspection and there is no deformity, no midline tenderness, no CVA tenderness. SKIN: no rashes and no bruising UPPER EXTREMITIES: upper extremities are grossly normal. LOWER EXTREMITIES: No pitting edema. NEURO EXAM: Normal sensorium, cranial nerves II-XII grossly intact, normal speech, no gross weakness of arms, no gross weakness of legs. MEDICAL DECISION MAKING: Patient is a 75-year-old female who presents ER for hypoxia brought in by EMS. Additional history obtained from EMS notes that they placed her on 10 L as she was found to be 80% on her 1 L. IV was established and blood work was obtained. Labs show mild leukocytosis of 15,000. No significant anemia. Platelets were low at 57 consistent with previous. D-dimer was elevated at 780. BMP along LFTs bilirubin and troponin was negative. Pro-Alex was normal. COVID flu and RSV was negative. Chest x-ray was clean. CT angio of the chest was negative. Patient was given hour-long neb treatment in combination with IV steroids. She remained on nasal cannula. Case was discussed with the hospitalist for further evaluation management treatment. Consults/Care Managements Discussions: Per [facility] Triage Nursing notes reviewed. Limited review of prior medical records performed Vital Signs: reviewed and remarkable for HTN Differential diagnosis: Differential diagnoses includes but is not limited to pneumonia, bronchitis, COPD/Asthma exacerbation, pneumothorax, pulmonary embolism, congestive heart failure, acute coronary syndrome ER treatment provided: See below Diagnostics interpreted by me include EKG and cardiac monitoring as listed below: -Cardiac Monitoring: An order was placed for continuous cardiac monitoring. The monitor shows a rate of 80 with sinus rhythm. -ECG: Sinus rhythm rate 79 Normal axis No PVCs QTc 435 -Laboratory studies:Interpreted by me as stated above in MDM and shown below. Imaging studies: Xrays: As interpreted by me: Portable AP upright 1 view of the chest shows questionable atelectasis left based CTs show: CT angio the chest was negative per radiology Procedures:none Critical Care: I have personally spent 33 minutes of critical care time in the direct management of this patient. This includes bedside care, interpretation of diagnostic studies, and testing, discussion with consultants, patient, and family members, and other required patient management activities. This 33 minutes is in excess of all separately billable procedures. Past Med/Surg History Problem List (Updated 09/18/25 @ 17:21 by Francesco Callahan DO) Shortness of breath (Acute) Acute hypoxic respiratory failure (Acute) Acute exacerbation of chronic obstructive pulmonary disease (COPD) (Acute) Sleep apnea Drowsiness Nocturnal hypoxia Abnormal chest CT Pulmonary nodules Thrombocytopenia COPD (chronic obstructive pulmonary disease) Cough Pneumonia due to 2019 novel coronavirus (Acute) Memory loss Anxiety and depression Hypoxia (Acute) COVID-19 Medical History (Updated 09/18/25 @ 17:21 by Francesco Callahan DO) CAP (community acquired pneumonia) Social History Smoking Status: Former smoker Tobacco Type: Cigarettes Age Started Using Tobacco: 20; Age Quit Using Tobacco: 64; packs per day: 1; Second Hand Exposure: Yes; Do You Dip or Chew Tobacco: No; Hx Alcohol Use: No Hx Substance Use: No Preferred Language: Portuguese Communication Ability: Effective Eyeglass Fitter Required: No Beliefs That Will Affect Care: None Current Living Situation: Alone Feels Safe at Home: Yes Assistive Devices: None Allergies Allergies Allergy/AdvReac Type Severity Reaction Status Date / Time No Known Allergies Allergy Unverified 09/18/25 16:00 Home Meds Home Medications Medication Instructions Recorded Confirmed mirtazapine 15 mg tablet 30 mg PO HS 09/25/20 09/18/25 venlafaxine 150 mg 300 mg PO QAM 09/25/20 09/18/25 capsule,extended release 24 hr acetaminophen 325 mg capsule 650 mg PO Q6 PRN Fever 06/01/24 09/18/25 albuterol sulfate 90 mcg/actuation 2 puff inhalation Q6H PRN 06/01/24 09/18/25 aerosol inhaler cough/wheezing atorvastatin 10 mg tablet 10 mg PO QAM 06/01/24 09/18/25 fexofenadine 180 mg tablet 180 mg PO DAILY PRN Allergy 06/01/24 09/18/25 Symptoms dextromethorphan-guaifenesin ER 60 1 tab PO Q12H 09/18/25 09/18/25 mg-1,200 mg tab,extend release,12hr (Mucus DM Max ER) Previous Rx's Medication Instructions Recorded Portable Oxygen #1 ea 07/29/24 umeclidinium 62.5 mcg-vilanterol 1 inh inhalation DAILY #60 ea 07/04/25 25 mcg/actuation powdr for inhalation (Anoro Ellipta) Results & Data (ED) Vital Signs Vital Signs - 24 hr 09/18/25 13:45 09/18/25 13:50 09/18/25 13:50 Temperature 36.6 C Temperature Source Oral Pulse Rate 55 L Pulse Rate [Apical] Respiratory Rate 25 H Respiratory Effort / Characteristics SOB on Exertion SOB on Exertion Respiratory Depth Normal Normal Respiratory Pattern Regular Regular Blood Pressure 164/96 H Blood Pressure [Left Arm] Blood Pressure Mean 118 Blood Pressure Mean [Left Arm] Pulse Oximetry 94 Oxygen Delivery Method Nasal Cannula Nasal Cannula Nasal Cannula Oxygen Flow Rate 5 5 5 Sepsis Recent Fever Within 48 Hours No Sepsis New/Unexplained Change in Mental Status N/A Sepsis Action Taken by Nursing No Action Required 09/18/25 13:52 09/18/25 14:06 09/18/25 14:40 Temperature Temperature Source Pulse Rate 52 L Pulse Rate [Apical] Respiratory Rate 20 Respiratory Effort / Characteristics Non-Labored Spontaneous Respiratory Depth Respiratory Pattern Blood Pressure Blood Pressure [Left Arm] Blood Pressure Mean Blood Pressure Mean [Left Arm] Pulse Oximetry 94 93 Oxygen Delivery Method Nasal Cannula Nasal Cannula Oxygen Flow Rate 5 5 Sepsis Recent Fever Within 48 Hours Sepsis New/Unexplained Change in Mental Status Sepsis Action Taken by Nursing 09/18/25 15:22 Temperature Temperature Source Pulse Rate Pulse Rate [Apical] 78 Respiratory Rate 22 Respiratory Effort / Characteristics Respiratory Depth Respiratory Pattern Blood Pressure Blood Pressure [Left Arm] 156/81 H Blood Pressure Mean Blood Pressure Mean [Left Arm] 106 Pulse Oximetry 91 Oxygen Delivery Method Oxygen Flow Rate Sepsis Recent Fever Within 48 Hours Sepsis New/Unexplained Change in Mental Status Sepsis Action Taken by Nursing Laboratory Data 09/18/25 13:58 09/18/25 13:58 Lab Results 09/18/25 Range/Units 13:58 WBC 15.18 H (4.8-10.8) K/ul RBC 4.67 (4.20-5.40) M/uL Hgb 13.6 (12.0-16.0) g/dL Hct 41.4 (37.0-47.0) % MCV 88.7 (80.0-100.0) fL MCH 29.1 (25.0-34.0) pg MCHC 32.9 (32.0-36.0) g/dL RDW Std Deviation 45.5 (36.4-46.3) fL RDW Coeff of Princess 14.2 (11.5-14.5) % Plt Count 57 L (130-400) K/uL MPV 11.6 (9.4-12.4) fL Neutrophils % (Manual) 33 % Lymphocytes % (Manual) 40 % Reactive Lymphs % (Man) 23 % Monocytes % (Manual) 4 % Neutrophils # (Manual) 5.01 (1.40-6.50) K/uL Total Absolute Neuts 5.01 (1.4-6.5) K/uL Lymphocytes # (Manual) 6.07 H (1.2-3.4) K/uL Reactive Lymphs # 3.49 K/uL Total Abs Lymphocytes 9.56 H (1.2-3.4) K/uL Monocytes # (Manual) 0.61 H (0.11-0.59) K/uL Polychromasia 1+ D-Dimer 780 H* (0-500) ug/L FEU Sodium 139 (136-145) mmol/L Potassium 4.4 (3.5-5.1) mmol/L Chloride 107 (98-107) mmol/L Carbon Dioxide 26 (21-32) mmol/L Anion Gap 6 (3-11) BUN 20 (6-23) mg/dl Creatinine 1.23 H (0.6-1.2) mg/dl Est Cr Clr Drug Dosing 45.9 ml/min eGFR 45.83 BUN/Creatinine Ratio 16.3 (10-20) Glucose 117 H (70-99(Fasting)) mg/dl Calcium 8.9 (8.6-10.3) mg/dl Total Bilirubin 0.4 (0.2-1.0) mg/dl AST 12 L (13-39) U/L ALT 11 (7-52) U/L Alkaline Phosphatase 83 (34-104) U/L Troponin I High Sens 3.1 (0-14) pg/ml Total Protein 6.9 (6.0-8.3) gm/dl Albumin 3.6 (3.4-5.0) gm/dl Globulin 3.3 (2.5-4.0) gm/dl Albumin/Globulin Ratio 1.1 (0.9-2) Lipase 20 (11-82) U/L Procalcitonin 0.03 (0-0.5) ng/ml SARS-CoV-2 (PCR) NEGATIVE (Negative) Influenza Type A (PCR) Negative (Neg) Influenza Type B (PCR) Negative (Neg) RSV (RT-PCR) Negative (Neg) Administered Medications Discontinued Medications Albuterol (Albut/Ipratrop 3mg/0.5mg Neb 3 Ml Vial) 9 ml NEB NOW STA; Protocol Stop: 09/18/25 13:59 Last Admin: 09/18/25 14:08 Dose: 9 ml Documented By: CARROLL Ioversol (Optiray 320 125ml) 115 ml IV ONCE ONE Stop: 09/18/25 15:35 Last Admin: 09/18/25 15:35 Dose: 115 ml Documented By: SALONI Methylprednisolone (Methylprednisolone 125 Mg/2 Ml Vial) 40 mg IV NOW STA Stop: 09/18/25 13:59 Last Admin: 09/18/25 14:07 Dose: 40 mg Documented By: CARROLL Imaging Data Radiologist's Impression: Chest X-Ray 09/18/25 13:58 Exam: AP Portable Chest Exam reason: Nonspecific chest pain Comparison: 07/06/2024 Technique: A single AP portable view of the chest was obtained Findings: The lungs are well-expanded. No focal areas of consolidation are identified. The cardiac and mediastinal silhouettes are within normal limits. There is no pneumothorax and no acute bony abnormalities are seen. Impression: No acute cardiopulmonary abnormalities Electronically signed by Jay Cook 09-18-2025 3:05 PM Chest CTA 09/18/25 15:18 Exam: CT angiogram of the chest. Exam reason: Pulmonary embolus. Comparison: 04/06/2025. Technique: Multiple transvaginal images of the chest were obtained using 1.25 mm axial slice thickness after the intravenous administration of contrast. Images were acquired in the arterial phase of contrast distribution and also reconstructed in the coronal MIP. Findings: There is no evidence of acute pulmonary embolus to the level of the proximal segmental branches of the pulmonary arteries. There is moderate emphysema and left basilar scarring. There is no pneumothorax. There are no pleural or pericardial effusions. there is an 8 mm nodule noted in the right lateral costophrenic sulcus. This is unchanged from the previous exam. There is a 7 mm nodule noted anterior laterally in the right upper lobe. This is unchanged from the previous examThere is a 6 mm and 4 mm adjacent parrot nodule seen in the anterior right upper lobe. This is unchanged from the previous exam. There is a 5 mm nodule noted laterally in the left upper lobe. This is unchanged from the previous exam. There is a 4 mm nodule noted and anterolateral left upper lobe. This is unchanged from the previous exam. There is prominent bilateral axillary adenopathy including an index 1.4 cm short axis lymph node in the right axilla. There is shotty mediastinal lymphadenopathy with an 11 mm short axis right paratracheal lymph node and 10 mm short axis AP window lymph node. The heart and great vessels are within normal limits. No endobronchial lesions are identified. No acute bony abnormalities are noted. The visualized portions of the upper abdomen are unremarkable. Impression: 1. No evidence of acute pulmonary embolus to the level of the proximal segmental branches of the pulmonary arteries. 2. Moderate emphysema. 3. Multiple bilateral pulmonary nodules measuring up to 8 mm. Recommend 6-month follow-up to ensure stability. 4. Prominent mediastinal and bilateral axillary adenopathy unchanged from the previous exam. Electronically signed by Jay Cook 09-18-2025 3:59 PM Discharge Plan Visit Data Chief Complaint: Shortness of Breath/Dyspnea Stated Complaint: sob ED Provider: Francesco Callahan Discharge Problem: Acute exacerbation of chronic obstructive pulmonary disease (COPD), Acute hypoxic respiratory failure, Shortness of breath Condition: Serious Forms Stand Alone Forms: [employer] PAC Prescriptions Prescriptions: No Action (DME) Portable Oxygen Misc See Rx Instructions .MEDSUPPLY Qty: 1 0RF Rx Instructions: Home Oxygen concentrator with portability, test for POC on settings 1-5 to maintain O2 above 90%.. 1LMP via n/c with exertion and sleep; VENITA 99. Anoro Ellipta 62.5-25 mcg/actuation blister with device 1 inh inhalation DAILY Qty: 60 3RF atorvastatin 10 mg tablet 10 mg PO QAM fexofenadine 180 mg tablet 180 mg PO DAILY PRN (Reason: Allergy Symptoms) albuterol sulfate 90 mcg/actuation HFA aerosol inhaler 2 puff inhalation Q6H PRN (Reason: cough/wheezing) acetaminophen 325 mg capsule 650 mg PO Q6 MDD 3g PRN (Reason: Fever) venlafaxine 150 mg capsule,extended release 24hr 300 mg PO QAM mirtazapine 15 mg tablet 30 mg PO HS dextromethorphan-guaifenesin [Mucus DM Max ER] 60-1,200 mg Tablet Extended Release 12 Hr 1 tab PO Q12H MDD 2 tabs in 24 hours Referrals Referrals: Katalina Hart MD [Primary Care Provider] -
[2025-09-18] MEDS: ALBUT/IPRATROP 3MG/0.5MG NEB 3 ML VIAL NEB STA (14:08)
[2025-09-18 14:30] LABS: Hematocrit (blood only) 41.4 % (37.0-47.0); Hemoglobin 13.6 g/dL (12.0-16.0); Mean Corpuscular Hemoglobin 29.1 pg (25.0-34.0); Mean Corpuscular Volume 88.7 fL (80.0-100.0); Platelet Count 57 K/uL (130-400); RDW Standard Deviation 45.5 fL (36.4-46.3); Red Blood Count 4.67 M/uL (4.20-5.40); White Blood Count 15.18 K/ul (4.8-10.8)
[2025-09-18 14:33] LABS: Alanine Aminotransferase 11.0 U/L (7-52); Albumin Globulin Ratio 1.1 (0.9-2); Albumin Level 3.6 gm/dl (3.4-5.0); Alkaline Phosphatase 83.0 U/L (34-104); Anion Gap 6.0 (3-11); Bilirubin,Total 0.4 mg/dl (0.2-1.0); Blood Urea Nitrogen 20.0 mg/dl (6-23); Calcium 8.9 mg/dl (8.6-10.3); Carbon Dioxide 26.0 mmol/L (21-32); Chloride 107.0 mmol/L (98-107); Creatinine Clr Calc Pharmacy 45.9 ml/min; Globulin 3.3 gm/dl (2.5-4.0); Glucose 117.0 mg/dl (70-99(Fasting)); Lipase 20.0 U/L (11-82); Potassium 4.4 mmol/L (3.5-5.1); Sodium 139.0 mmol/L (136-145); Total Protein 6.9 gm/dl (6.0-8.3)
[2025-09-18 14:52] LABS: Influenza A virus by PCR Negative (Neg); Influenza B virus by PCR Negative (Neg); SARS CoV2 RNA(COVID-19) Ceph NEGATIVE (Negative)
[2025-09-18 15:02] LABS: ALC (manual) 9.56 K/uL (1.2-3.4); ANC (manual) 5.01 K/uL (1.4-6.5); Polychromasia 1+; Reactive Lymphocytes # (manual) 3.49 K/uL; Reactive Lymphocytes % (manual) 23 %
--- NOTE | 2025-09-18 15:06 | XRay Report ---
Exam: AP Portable Chest Exam reason: Nonspecific chest pain Comparison: 07/06/2024 Technique: A single AP portable view of the chest was obtained Findings: The lungs are well-expanded. No focal areas of consolidation are identified. The cardiac and mediastinal silhouettes are within normal limits. There is no pneumothorax and no acute bony abnormalities are seen. Impression: No acute cardiopulmonary abnormalities Electronically signed by Jay Cook 09-18-2025 3:05 PM
[2025-09-18] MEDS: OPTIRAY 320 125ml IV ONE (15:35)
--- NOTE | 2025-09-18 15:59 | CT Scan Report ---
Exam: CT angiogram of the chest. Exam reason: Pulmonary embolus. Comparison: 04/06/2025. Technique: Multiple transvaginal images of the chest were obtained using 1.25 mm axial slice thickness after the intravenous administration of contrast. Images were acquired in the arterial phase of contrast distribution and also reconstructed in the coronal MIP. Findings: There is no evidence of acute pulmonary embolus to the level of the proximal segmental branches of the pulmonary arteries. There is moderate emphysema and left basilar scarring. There is no pneumothorax. There are no pleural or pericardial effusions. there is an 8 mm nodule noted in the right lateral costophrenic sulcus. This is unchanged from the previous exam. There is a 7 mm nodule noted anterior laterally in the right upper lobe. This is unchanged from the previous examThere is a 6 mm and 4 mm adjacent parrot nodule seen in the anterior right upper lobe. This is unchanged from the previous exam. There is a 5 mm nodule noted laterally in the left upper lobe. This is unchanged from the previous exam. There is a 4 mm nodule noted and anterolateral left upper lobe. This is unchanged from the previous exam. There is prominent bilateral axillary adenopathy including an index 1.4 cm short axis lymph node in the right axilla. There is shotty mediastinal lymphadenopathy with an 11 mm short axis right paratracheal lymph node and 10 mm short axis AP window lymph node. The heart and great vessels are within normal limits. No endobronchial lesions are identified. No acute bony abnormalities are noted. The visualized portions of the upper abdomen are unremarkable. Impression: 1. No evidence of acute pulmonary embolus to the level of the proximal segmental branches of the pulmonary arteries. 2. Moderate emphysema. 3. Multiple bilateral pulmonary nodules measuring up to 8 mm. Recommend 6-month follow-up to ensure stability. 4. Prominent mediastinal and bilateral axillary adenopathy unchanged from the previous exam. Electronically signed by Jay Cook 09-18-2025 3:59 PM
[2025-09-18] MEDS ORDERED: POLYETHYLENE (MIRALAX) 17 GM PACK PO PRN (16:43)
[2025-09-18] MEDS ORDERED: ALUMINUM/MAGNESIUM SUSP 30 ML UDC PO PRN (16:43)
[2025-09-18] MEDS ORDERED: MELATONIN 3 MG TAB PO PRN (16:43)
[2025-09-18] MEDS ORDERED: ONDANSETRON INJ 2 MG/ML 2 ML VIAL IV PRN (16:43)
[2025-09-18] MEDS ORDERED: ACETAMINOPHEN 325 MG TAB PO PRN (16:43)
[2025-09-18] MEDS ORDERED: MAGNESIUM HYDROXIDE SUSP 30 ML UDC PO PRN (16:43)
--- NOTE | 2025-09-18 16:43 | History & Physical Report ---
"<Statement entered by Milagros Lee MD - 09/19/25 09:19> I have reviewed vital signs, chart notes, labs and imaging. I have personally seen, evaluated and examined the patient. I have also discussed the management of the patient with the NURIA and I agree with the exam findings documented in the history and physical examination and the documented assessment and plan unless otherwise stated below. Please see my separate communication note from 09/18 for details Date of Service September 18, 2025 Assessment & Plan (1) Acute exacerbation of chronic obstructive pulmonary disease (COPD): (2) Shortness of breath: (3) Pulmonary nodules: (4) Thrombocytopenia: (5) Anxiety and depression: (6) Obstructive sleep apnea: Plan Patient is a 75-year-old female that presented to [facility] emergency department via EMS for complaints of shortness of breath that started this morning. She checked her oxygen saturation at the [facility] facility where she lives with 2 other people and it was discovered to be in the low 80s. She was provided oxygen resuscitation in the emergency department via NRB at 10LPM. Her SPO2 increased into the mid 90s then she was titrated back down to nasal cannula at 5LPM. She received methylprednisolone 40mg IV in ED and Duoneb. Not tachypneic or wheezing on exam. D-dimer elevated 780, chest CTA with no evidence of acute pulmonary embolus. 12 lead EKG with no acute changes. Chest XRAY with no acute abnormalities. ##COPD exacerbation|hypoxia CTA with no evidence of PE no overt signs of volume overload mild leukocytosis with WBC, procal WNL troponin negative [employer] pending BNP pending titrate oxygen to goal of 90% continue home inhalers Duoneb PRN, Albuterol PRN methylprednisolone 40 mg IV twice daily Lasix 20mg IV (focused lung exam with bibasilar crackles)?RHF TTE 07/07/24 Left ventricular systolic function normal, moderate concentric LVH, LA mildly dilated, grade 1 diastolic function, RV normal ##thrombocytopenia platelets [id number], LFTs WNL, bili WNL trends low since 07/2024 No active bleeding B12/folate levels no offending medication agents no overt anemia FH-->immune hemolytic anemia ##pulmonary nodules follows with [facility] pulmonology CTA with multiple bilateral pulmonary nodules measuring up to 8mm-rec 6mth f/u for stability ##anxiety/depression continue venlafaxine 300 mg daily ##LAUREL CPAP at hs DVT prophylaxis: SCDs Diet: Heart healthy Disposition: Full admit to med/tele CODE STATUS: FULL CODE History of Present Illness Chief Complaint: Shortness of breath Primary Care Provider: Katalina Hart MD Estelle is a 75 year old female with past medical history significant for COPD, obstructive sleep apnea, pulmonary nodules, nocturnal hypoxia, community- acquired pneumonia, anxiety, depression that presents with complaints of shortness of breath and worsening dyspnea on exertion that started this morning. States her oxygen level was in the low 80s this morning on her usual O2 therapy at 1LPM. She arrived to [facility] [address] emergency department via EMS from [facility] due to her symptoms. She is chronically on oxygen therapy secondary to her diagnosis of COPD. At baseline she typically wears 1 L via nasal cannula. States she she has had some nausea without vomiting, dull headache, no fever, at baseline has some degree of dyspnea on exertion. Denies CP, leg swelling, rapid weight gain, bloating, or abdominal swelling. Denies change in sputum production or quality. No night sweats. She quit tobacco 10 to 15 years ago, rarely uses alcohol has not had consumption in many years. After full discussion with patient and she elects to be a full code during her hospitalization. Allergies Allergy/AdvReac Type Severity Reaction Status Date / Time No Known Allergies Allergy Unverified 09/18/25 16:00 Home Medications Medication Instructions Recorded Confirmed Type mirtazapine 15 mg tablet 30 mg PO HS 09/25/20 09/18/25 History venlafaxine 150 mg 300 mg PO QAM 09/25/20 09/18/25 History capsule,extended release 24 hr acetaminophen 325 mg capsule 650 mg PO Q6 PRN Fever 06/01/24 09/18/25 History albuterol sulfate 90 mcg/actuation 2 puff inhalation Q6H PRN 06/01/24 09/18/25 History aerosol inhaler cough/wheezing atorvastatin 10 mg tablet 10 mg PO QAM 06/01/24 09/18/25 History fexofenadine 180 mg tablet 180 mg PO DAILY PRN Allergy 06/01/24 09/18/25 History Symptoms Portable Oxygen #1 ea 07/29/24 09/18/25 Rx umeclidinium 62.5 mcg-vilanterol 1 inh inhalation DAILY #60 ea 07/04/25 09/18/25 Rx 25 mcg/actuation powdr for inhalation (Anoro Ellipta) dextromethorphan-guaifenesin ER 60 1 tab PO Q12H 09/18/25 09/18/25 History mg-1,200 mg tab,extend release,12hr (Mucus DM Max ER) Past Med/Surg History Problem List (Updated 09/18/25 @ 18:14 by ALTA Perez) Obstructive sleep apnea Shortness of breath (Acute) Acute hypoxic respiratory failure (Acute) Acute exacerbation of chronic obstructive pulmonary disease (COPD) (Acute) Sleep apnea Drowsiness Nocturnal hypoxia Abnormal chest CT Pulmonary nodules Thrombocytopenia COPD (chronic obstructive pulmonary disease) Cough Pneumonia due to 2019 novel coronavirus (Acute) Memory loss Anxiety and depression Hypoxia (Acute) COVID-19 Medical History (Updated 09/18/25 @ 18:14 by ALTA Perez) CAP (community acquired pneumonia) Social History Smoking Status: Former smoker Tobacco Type: Cigarettes Age Started Using Tobacco: 20; Age Quit Using Tobacco: 64; packs per day: 1; Second Hand Exposure: Yes; Do You Dip or Chew Tobacco: No; Hx Alcohol Use: No Hx Substance Use: No Preferred Language: Occitan Communication Ability: Effective Ski [employer] Wood Required: No Beliefs That Will Affect Care: None Current Living Situation: Alone Feels Safe at Home: Yes Assistive Devices: None Review of Systems Review of Systems: All systems reviewed & are unremarkable except as noted in Subjective Physical Exam Physical Exam: GENERAL APPEARANCE: A&O. Sitting comfortably on stretcher. NAD. SKIN: Normal color without rashes or lesions. Normal turgor. HEENT: Head AT/NC. Buccal mucosa is moist and pink. NECK: No jugular venous distention. No thyroid enlargement. There is no lymphadenopathy. HEART: RRR without m/g/r. LUNGS: Normal inspiratory effort. Bibasilar coarse crackles. ABDOMEN: No guarding or rigidity. Normoactive BS in all four quadrants. Abdomen soft and NT. MSK: No bony gross/deformities throughout. ROM intact. EXTREMITIES: No edema, No peripheral cyanosis. Neuro: CN 2-12 grossly intact. No focal neuro deficits PSYCHIATRIC: Normal affect. Eye contact is good. Speech is normal rate and content. Responses are appropriate. Results & Data Results & Data Vital Signs (Past 12 Hours) Vital Signs Temp Pulse Pulse Resp BP BP Pulse Ox 09/18/25 15:22 78 22 156/81 H 91 09/18/25 14:40 93 09/18/25 14:06 52 L 09/18/25 13:52 20 94 09/18/25 13:50 09/18/25 13:50 09/18/25 13:45 36.6 C 55 L 25 H 164/96 H 94 O2 Del Method O2 Flow Rate 09/18/25 15:22 09/18/25 14:40 Nasal Cannula 5 09/18/25 14:06 09/18/25 13:52 Nasal Cannula 5 09/18/25 13:50 Nasal Cannula 5 09/18/25 13:50 Nasal Cannula 5 09/18/25 13:45 Nasal Cannula 5 Laboratory Results Labs reviewed: CBC, CMP, D-dimer, troponin PG Care Time/CCT Total # of Minutes Spent Total Time Spent with Patient: Total time spent is greater than 50% in coordination of care (as documented) at patient's floor/unit and/or counseling patient: Coding Level of Care Code 77811 INT INP/OBS CARE 2/55MIN Diagnoses Acute exacerbation of chronic obstructive pulmonary disease (COPD) J44.1 Shortness of breath R06.02 Pulmonary nodules R91.8 Thrombocytopenia D69.6 Anxiety and depression F41.9; F32.9 Obstructive sleep apnea G47.33"
[2025-09-18] MEDS: LACTATED RINGER'S 1,000 ML IV ONE (17:34)
[2025-09-18] MEDS ORDERED: ALBUTEROL 0.083% NEBU SOLN 3 ML VIAL NEB PRN (17:48)
--- NOTE | 2025-09-18 18:41 | Communication Note ---
Date of Service: September 18, 2025 75-year-old woman with COPD admitted with mild shortness of breath found to be hypoxic more than baseline. She has chronic hypoxic respiratory failure usually on 1 L oxygen per nasal cannula. CTA chest done by the emergency department is negative for PE and there was no pneumonia. She has a leukocytosis of unknown significance. Breathing improved somewhat after Solu-Medrol and nebs given in the ED. On my exam she had bibasilar crackles I cannot see her neck veins she has minimal lower extremity pitting edema. TTE a year ago with a normal LVEF. She recently started CPAP for obstructive sleep apnea. Agree with plan of care by MAYRA Larose in her H&P, we will continue treating COPD exacerbation with steroids and bronchodilators. Also try a dose of Lasix IV because she has prominent crackles other than wheezing or decreased air movement, acute diastolic heart failure is a possibility.
[2025-09-18] MEDS: FUROSEMIDE INJ 20 MG/2 ML VIAL IV ONE (18:43)
[2025-09-18 19:22] LABS: Folate (Folic Acid),Ser orPlas 13.62 ng/ml (>5.38)
[2025-09-18 19:23] LABS: Vitamin B12 273.0 pg/ml (180-914)
[2025-09-18] MEDS: MIRTAZAPINE TAB 15 MG TAB PO SCH (20:05)
[2025-09-18] MEDS: ALBUT/IPRATROP 3MG/0.5MG NEB 3 ML VIAL NEB SCH (20:11)
[2025-09-18 20:22] LABS: Chlamydia pneumoniae PCR Not Detected (NotDetected); Coronavirus 229E PCR Not Detected (NotDetected); Coronavirus CoV-2 (COVID19)PCR Not Detected (NotDetected); Coronavirus HKU1 PCR Not Detected (NotDetected); Coronavirus NL63 PCR Not Detected (NotDetected); Coronavirus OC43PCR Not Detected (NotDetected); Human Metapneumovirus PCR Not Detected (NotDetected); Parainfluenza Virus 1 PCR Not Detected (NotDetected); Parainfluenza Virus 2 PCR Not Detected (NotDetected); Parainfluenza Virus 3 PCR Not Detected (NotDetected); Parainfluenza Virus 4 PCR Not Detected (NotDetected); Respiratory Syncytial VirusPCR Not Detected (NotDetected); Rhinovirus/Enterovirus PCR Not Detected (NotDetected)
[2025-09-19 07:08] LABS: Smudge Cells Present
[2025-09-19] MEDS: UMECLIDINIUM/VILANTEROL 62.5/25MCG 7 PUFFS/INHALER INH SCH (07:37)
[2025-09-19] MEDS: VENLAFAXINE HCL XR 150 MG CAPXR PO SCH (07:38)
[2025-09-19 13:50] LABS: Anion Gap 9.0 (3-11); Blood Urea Nitrogen 32.0 mg/dl (6-23); Calcium 9.5 mg/dl (8.6-10.3); Carbon Dioxide 23.0 mmol/L (21-32); Chloride 101.0 mmol/L (98-107); Creatinine Clr Calc Pharmacy 43.1 ml/min; Glucose 181.0 mg/dl (70-99(Fasting)); Magnesium 2.1 mg/dl (1.7-2.4); Potassium 4.2 mmol/L (3.5-5.1); Sodium 133.0 mmol/L (136-145)
[2025-09-19] MEDS: POTASSIUM CHLORIDE CRTAB 20 MEQ TABCR PO ONE (14:34)
[2025-09-19] MEDS: ATORVASTATIN 10 MG TAB PO SCH (14:34)
[2025-09-19] MEDS: FUROSEMIDE 40 MG/4 ML VIAL IV ONE (14:34)
--- NOTE | 2025-09-19 16:22 | Hospitalist Progress Note ---
Date of Service September 19, 2025 Assessment & Plan (1) Acute exacerbation of chronic obstructive pulmonary disease (COPD): (2) Shortness of breath: (3) Pulmonary nodules: (4) Thrombocytopenia: (5) Anxiety and depression: (6) Obstructive sleep apnea: Plan 75-year-old woman admitted for hypoxia. CTA chest was negative for pulmonary embolism or any focal infiltrates. she was treated for COPD exacerbation on admission with IV steroids and bronchodilators, however, she has not been tight or wheezy and I am doubtful that this is the actual problem. We considered heart failure and had a trial of diuresis was 20 mg of IV Lasix yesterday and 40 mg IV Lasix today, is not clear that this made any difference in her hypoxia or symptoms and she now appears on the side of hypovolemic based on her lab tests and her rate. # acute on chronic hypoxic respiratory failure - at baseline she uses 1 L of oxygen with exertion CTA with no evidence of PE or pneumonia Continue supplemental oxygen continue treatment for acute exacerbation of COPD though remains unconvincing no evidence of bronchospasm today Duoneb PRN, Albuterol PRN stop steroids since she is having no wheezing or tightness consider heart failure, trial of diuresis. 40 mg IV Lasix this morning, labs after that now look hypovolemic. TTE pending potentially this is related to obesity hypoventilation, though seems a little too severe for that. Ordered incentive spirometry, continue PT/OT and mobility #thrombocytopenia platelets [id number], LFTs WNL, bili WNL trends low since 07/2024 No active bleeding B12/folate levels no offending medication agents no overt anemia FH-->immune hemolytic anemia #pulmonary nodules follows with [facility] pulmonology CTA with multiple bilateral pulmonary nodules measuring up to 8mm-rec 6mth f/u for stability #anxiety/depression continue venlafaxine 300 mg daily #hyperlipidemia Resumed her atorvastatin #LAUREL CPAP at hs with 2 L bleed in DVT prophylaxis: add enoxaparin Admission and Anticipated Discharge Date Admission Date: September 18, 2025 Subjective Estelle is feeling about the same she does not have any short of breath but she has dyspnea with exertion overnight oxygen was increased from 4 to 5 L nasal cannula, this morning she was 82% on 5 L and then was increased to 6 L. When she got up to walk with PT on 6 L she dropped her oxygen saturations into the 80s she is not having any chest pain, did not urinate a lot after 20 mg of IV Lasix yesterday Physical Exam Physical Exam: General Appearance: Awake, alert, oriented, pleasant. Vital signs: Reviewed past 24h vital signs in EMR, notable for: O2 sat 91-92% on 6 L. HEENT: Within normal limits. Respiratory: Lungs clear to auscultation anteriorly and posteriorly, good air movement, no wheezing, bilateral crackles correction up, more on right. Cardiovascular: Heart regular rate and rhythm, no murmurs, rubs, or gallops. Gastrointestinal: Abdomen soft, nontender, nondistended. Extremities: Lower extremities warm, well perfused, 1+ edema with minimal pitting. Skin: Warm and dry, no rash. Neurological: AOx4, normal speech and mentation, anguiano x 4. Psychiatric: Normal. Results & Data Results & Data Vital Signs (Past 12 Hours) Vital Signs Temp Pulse Pulse Resp BP Pulse Ox Pulse Ox 09/19/25 13:16 87 L 09/19/25 11:26 36.4 C L 91 H 20 127/63 90 09/19/25 10:39 89 16 97 09/19/25 08:48 91 09/19/25 08:13 36.2 C L 86 20 118/69 09/19/25 07:35 09/19/25 07:11 78 09/19/25 07:03 76 18 96 O2 Del Method O2 Flow Rate O2 Flow Rate 09/19/25 13:16 6 09/19/25 11:26 Nasal Cannula 4 09/19/25 10:39 Nasal Cannula 09/19/25 08:48 Nasal Cannula 6 09/19/25 08:13 09/19/25 07:35 Nasal Cannula 6 09/19/25 07:11 09/19/25 07:03 Nasal Cannula 5 Laboratory Results - Laboratory Studies: - WBC: 15 yesterday BNP was low though can be false negative and obese Sodium 133 potassium 4.2 BUN 32 creatinine 1.31 which is increased from 1.23 PG Care Time/CCT Total # of Minutes Spent Total Time Spent with Patient: Total time spent is greater than 50% in coordination of care (as documented) at patient's floor/unit and/or counseling patient: Coding Level of Care Code 75534 SUB INP/OBS CARE 3/50MIN Diagnoses Acute exacerbation of chronic obstructive pulmonary disease (COPD) J44.1 Shortness of breath R06.02 Pulmonary nodules R91.8 Thrombocytopenia D69.6 Anxiety and depression F41.9; F32.9 Obstructive sleep apnea G47.33
--- NOTE | 2025-09-19 18:36 | XCELERA ---
[id number]
--- NOTE | 2025-09-19 22:29 | Electrocardiogram Report ---
Test Reason : Blood Pressure : */* mmHG Vent. Rate : 79 BPM Atrial Rate : 79 BPM P-R Int : 166 ms QRS Dur : 72 ms QT Int : 380 ms P-R-T Axes : -13 -23 24 degrees QTcB Int : 435 ms Sinus rhythm with sinus arrhythmia Low voltage QRS Possible Anterolateral infarct (cited on or before 06-Jul-2024) Abnormal ECG When compared with ECG of 06-Jul-2024 11:46, No significant change was found Confirmed by Kalyan Askew ([id number]) on 09/19/2025 10:29:16 PM Referred By: REFERRED SELF Confirmed By: Kalyan Askew
[2025-09-20 08:06] LABS: Anion Gap 7.0 (3-11); Blood Urea Nitrogen 43.0 mg/dl (6-23); Calcium 9.1 mg/dl (8.6-10.3); Carbon Dioxide 25.0 mmol/L (21-32); Chloride 106.0 mmol/L (98-107); Creatinine Clr Calc Pharmacy 42.2 ml/min; Glucose 105.0 mg/dl (70-99(Fasting)); Magnesium 2.4 mg/dl (1.7-2.4); Potassium 4.6 mmol/L (3.5-5.1); Sodium 138.0 mmol/L (136-145)
--- NOTE | 2025-09-20 16:58 | Hospitalist Progress Note ---
Date of Service September 20, 2025 Assessment & Plan (1) Acute exacerbation of chronic obstructive pulmonary disease (COPD): (2) Obstructive sleep apnea: (3) Obesity hypoventilation syndrome: (4) Chronic hypoxic respiratory failure: (5) Pulmonary nodules: (6) Thrombocytopenia: Plan 75-year-old woman admitted for hypoxia. she is known to have chronic hypoxic respiratory failure usual oxygen is 1 L continuous, she also has obstructive sleep apnea and recently started CPAP. She really was asymptomatic of any dyspnea but she had a very low O2 sat when checked by the staff at her facility and by medics. CTA chest was negative for pulmonary embolism or any focal infiltrates. she was treated for COPD exacerbation on admission with IV steroids and bronchodilators, however, she has not been tight or wheezy and I am doubtful that this is Much of an issue. We considered heart failure and had a trial of diuresis was 20 mg of IV Lasix 09/18 and 09/19 but it did not clearly make any difference in symptoms or her hypoxia. She was diuresed to the dry side of euvolemia based on physical exam and labs. TTE was obtained and it showed normal LV with EF greater than 70% mild to moderate concentric LVH no significant valve problems normal estimated RVSP and normal IVC collapsibility consistent with normal CVP. hypoxia has improved and I think that it was mostly atelectasis related to obesity hypoventilation. She completed a two-step test with respiratory therapy and she is requiring 2 L of oxygen at rest and with activity. She lives at [facility] and advised that she work with her oxygen supply company to find a CPAP mask which fits properly because this will be a big help. She is plan to discharge back to [facility] on 09/21. I have filled out a new oxygen prescription # acute on chronic hypoxic respiratory failure, multifactorial # atelectasis from obesity hypoventilation, BMI 38 # possible mild acute exacerbation of COPD - treated with steroids for two days, stopped since no wheezing or bronchospasm, continue bronchodilators -heart failure was ruled out by trial of diuretics, TTE findings and low BNP #thrombocytopenia platelets [id number], LFTs WNL, bili WNL trends low since 07/2024 No active bleeding no offending medication agents no overt anemia FH-->immune hemolytic anemia #B12 deficiency - level was 273 which is probably deficient -1000 mg IM on 09/20 and 09/21 -oral supplement on discharge, follow up with primary care and consider a series of IM injections #pulmonary nodules follows with [facility] pulmonology CTA with multiple bilateral pulmonary nodules measuring up to 8mm- radiologist recommended 6mth f/u CT for stability #anxiety/depression continue venlafaxine 300 mg daily #hyperlipidemia atorvastatin DVT prophylaxis: enoxaparin Admission and Anticipated Discharge Date Admission Date: September 18, 2025 Subjective Estelle is doing fine she does not have any dyspnea or coughing. She had no more episodes of desats today even with activity she did her 2 step and needed 2 L per nasal cannula at rest and with ambulation she has a relatively new CPAP at home but has having difficulty with the current mask Physical Exam Physical Exam: General Appearance: Awake, alert, oriented, pleasant. sitting up in the chair resting Vital signs: Reviewed past 24h vital signs in EMR, notable for: O2 sat 93% on 4 L, afebrile HEENT: Within normal limits. Respiratory: Lungs clear to auscultation anteriorly and posteriorly, bibasilar crackles improved after a few deep breaths. No wheezing good air movement Cardiovascular: Heart regular rate and rhythm, no murmurs, rubs, or gallops. d istant Gastrointestinal: Abdomen soft, nontender, nondistended. Extremities: Lower extremities warm, well perfused, no lower extremity pitting edema Skin: Warm and dry, no rash. Neurological: AOx4, normal speech and mentation, anguiano x 4. Psychiatric: passive affect Results & Data Results & Data Vital Signs (Past 12 Hours) Vital Signs Temp Pulse Pulse Pulse Pulse Pulse Resp 09/20/25 15:15 36.3 C L 78 16 09/20/25 14:51 85 09/20/25 12:15 36.3 C L 80 20 09/20/25 12:05 100 H 84 81 09/20/25 09:01 70 09/20/25 08:48 09/20/25 07:49 36.7 C 71 16 Resp Resp Resp BP Pulse Ox Pulse Ox Pulse Ox 09/20/25 15:15 146/77 H 93 09/20/25 14:51 09/20/25 12:15 111/56 L 90 09/20/25 12:05 22 20 20 90 92 09/20/25 09:01 09/20/25 08:48 09/20/25 07:49 119/68 96 Pulse Ox O2 Del Method O2 Flow Rate O2 Flow Rate O2 Flow Rate 09/20/25 15:15 Nasal Cannula 4 09/20/25 14:51 09/20/25 12:15 Room Air 09/20/25 12:05 86 L 2 2 09/20/25 09:01 09/20/25 08:48 Nasal Cannula 4 09/20/25 07:49 Nasal Cannula 4 Laboratory Results sodium 138 potassium 4.6 BUN 43 which is increased from yesterday, creatinine 1.33 which is a little bit increased from yesterday magnesium is 2.4 reviewed blood glucoses and they are at goal for past 24 hours PG Care Time/CCT Total # of Minutes Spent Total Time Spent with Patient: I personally spent: 50 minutes today on clinical care activities including: reviewing chart notes and vital signs reviewing labs discussion with critical care nurse practitioner, RT, RN examining and counseling the patient writing orders writing prescriptions documentation Coding Level of Care Code 37612 SUB INP/OBS CARE 3/50MIN Diagnoses Acute exacerbation of chronic obstructive pulmonary disease (COPD) J44.1 Obstructive sleep apnea G47.33 Obesity hypoventilation syndrome E66.2 Chronic hypoxic respiratory failure J96.11 Pulmonary nodules R91.8 Thrombocytopenia D69.6
[2025-09-20] MEDS: CYANOCOBALAMIN 1000 MCG/ML VIAL IM SCH (17:46)
[2025-09-21 07:49] VITALS: RESP 20; TEMP 97.7; O2SAT 89
[2025-09-21 08:34] LABS: Anion Gap 7.0 (3-11); Blood Urea Nitrogen 39.0 mg/dl (6-23); Calcium 8.9 mg/dl (8.6-10.3); Carbon Dioxide 25.0 mmol/L (21-32); Chloride 106.0 mmol/L (98-107); Creatinine Clr Calc Pharmacy 48.2 ml/min; Glucose 105.0 mg/dl (70-99(Fasting)); Magnesium 2.3 mg/dl (1.7-2.4); Potassium 4.4 mmol/L (3.5-5.1); Sodium 138.0 mmol/L (136-145)
--- NOTE | 2025-09-21 08:46 | XRay Report ---
SINGLE VIEW CHEST CLINICAL HISTORY: Hypoxia. Atelectasis FINDINGS: An AP, portable, upright chest radiograph is compared to chest x-ray and chest CT dated . The heart is enlarged noting atherosclerotic calcification of the thoracic aorta. The pulmon billie vasculature is noncongested. Emphysema and chronic interstitial thickening is similar to previous . There is mild elevation of the right hemidiaphragm with bibasilar scarring/atelectasis. No airspace consolidation or large pleural effusion is identified. No pneumothorax is seen. The skeletal structu res are osteopenic. The bony thorax is grossly intact. IMPRESSION: Cardiomegaly and emphysema with no acute cardiopulmonary abnormality identified. ACT 112: Negative or not required by law. Electronically signed by: Connor Holman M.D. 09/21/2025 8:44 AM
--- NOTE | 2025-09-21 09:14 | Discharge Summary ---
Discharge Summary Date of Service September 21, 2025 Principal Dx & Hospital Course #1 = Principal Diagnosis (1) Acute exacerbation of chronic obstructive pulmonary disease (COPD): (2) Obstructive sleep apnea: (3) Obesity hypoventilation syndrome: (4) Chronic hypoxic respiratory failure: (5) Pulmonary nodules: (6) Thrombocytopenia: Plan 75-year-old woman admitted for hypoxia. she is known to have chronic hypoxic respiratory failure usual oxygen is 1 L continuous, she also has obstructive sleep apnea and recently started CPAP. She really was asymptomatic of any dyspnea but she had a very low O2 sat when checked by the staff at her facility and by medics. CTA chest was negative for pulmonary embolism or any focal infiltrates. she was treated for COPD exacerbation on admission with IV steroids and bronchodilators, however, she has not been tight or wheezy and I am doubtful that this is Much of an issue. We considered heart failure and had a trial of diuresis was 20 mg of IV Lasix 09/18 and 09/19 but it did not clearly make any difference in symptoms or her hypoxia. She was diuresed to the dry side of euvolemia based on physical exam and labs. TTE was obtained and it showed normal LV with EF greater than 70% mild to moderate concentric LVH no significant valve problems normal estimated RVSP and normal IVC collapsibility consistent with normal CVP. hypoxia has improved and I think that it was mostly atelectasis related to obesity hypoventilation. She completed a two-step test with respiratory therapy and she is requiring 2 L of oxygen at rest and with activity. She lives at [facility] and advised that she work with her oxygen supply company to find a CPAP mask which fits properly because this will be a big help. She is plan to discharge back to [facility] on 09/21. I have filled out a new oxygen prescription # acute on chronic hypoxic respiratory failure, multifactorial # atelectasis from obesity hypoventilation, BMI 38 # possible mild acute exacerbation of COPD - treated with steroids for two days, stopped since no wheezing or bronchospasm, continue bronchodilators -heart failure was ruled out by trial of diuretics, TTE findings and low BNP #thrombocytopenia platelets [id number], LFTs WNL, bili WNL trends low since 07/2024 No active bleeding no offending medication agents no overt anemia FH-->immune hemolytic anemia #B12 deficiency - level was 273 which is probably deficient -1000 mg IM on 09/20 and 09/21 -oral supplement on discharge, follow up with primary care and consider a series of IM injections #pulmonary nodules follows with [facility] CTA with multiple bilateral pulmonary nodules measuring up to 8mm- radiologist recommended 6mth f/u CT for stability #anxiety/depression continue venlafaxine 300 mg daily #hyperlipidemia atorvastatin DVT prophylaxis: enoxaparin Admission HPI Per Admitting Provider Estelle is a 75 year old female with past medical history significant for COPD, obstructive sleep apnea, pulmonary nodules, nocturnal hypoxia, community- acquired pneumonia, anxiety, depression that presents with complaints of shortness of breath and worsening dyspnea on exertion that started this morning. States her oxygen level was in the low 80s this morning on her usual O2 therapy at 1LPM. She arrived to [facility] emergency department via EMS from [facility] due to her symptoms. She is chronically on oxygen therapy secondary to her diagnosis of COPD. At baseline she typically wears 1 L via nasal cannula. States she she has had some nausea without vomiting, dull headache, no fever, at baseline has some degree of dyspnea on exertion. Denies CP, leg swelling, rapid weight gain, bloating, or abdominal swelling. Denies change in sputum production or quality. No night sweats. She quit tobacco 10 to 15 years ago, rarely uses alcohol has not had consumption in many years. After full discussion with patient and she elects to be a full code during her hospitalization. Discharge Plan Discharge Items Patient Disposition: Personal Fdc Reason For Visit: SHORTNESS OF BREATH Discharge Diagnosis: Acute exacerbation COPD, obesity hypoventilation syndrome with atelectasis Condition on Discharge: Fair Activity: Resume your previous activity Non-emergency contact: Primary Care Provider Call non-emergency contact if: your symptoms worsen Follow-up/Referrals: Katalina Hart MD [Primary Care Provider] - Diet: Regular and Heart Healthy Addtl Attending Provider Instructions: We re-tested your oxygen and you need 2L of O2 continuously at rest and with activity Please schedule follow up with your respiratory supply company [employer] to find a CPAP mask that fits better You were found to be deficient in B12. Take the oral supplement and follow up with PCP to see whether you should continue the oral or have a series of injections CTA with multiple bilateral pulmonary nodules measuring up to 8mm- radiologist recommended follow up CT in 6 months - continue following up with Juan Antonio Savannah in pulmonary clinic Pending Studies at Discharge: No (peripheral blood flow cytometry) Stand-Alone Forms: My [employer], Smoking Cessation Skilled Items Patient informed of condition?: Yes DNR: Yes Discharge Level of Care: Other Communicable Disease: No Discharge Prognosis: Stable Lines: None Urinary Catheter: No Medications and DC Order Prescriptions: Continued (DME) Portable Oxygen Misc See Rx Instructions .MEDSUPPLY Qty: 1 0RF Rx Instructions: Home Oxygen concentrator with portability, test for POC on settings 1-5 to maintain O2 above 90%.. 1LMP via n/c with exertion and sleep; VENITA 99. Anoro Ellipta 62.5-25 mcg/actuation blister with device 1 inh inhalation DAILY Qty: 60 3RF atorvastatin 10 mg tablet 10 mg PO QAM fexofenadine 180 mg tablet 180 mg PO DAILY PRN (Reason: Allergy Symptoms) albuterol sulfate 90 mcg/actuation HFA aerosol inhaler 2 puff inhalation Q6H PRN (Reason: cough/wheezing) acetaminophen 325 mg capsule 650 mg PO Q6 MDD 3g PRN (Reason: Fever) venlafaxine 150 mg capsule,extended release 24hr 300 mg PO QAM mirtazapine 15 mg tablet 30 mg PO HS dextromethorphan-guaifenesin [Mucus DM Max ER] 60-1,200 mg Tablet Extended Release 12 Hr 1 tab PO Q12H MDD 2 tabs in 24 hours Discharge Orders: Discharge Order (Routine); Ordered 09/21/25 Ordered By: Mark Hilliard Admission Data Admit Date/Time: 09/18/25 16:44 Attending Provider: Mark Hilliard Admit Provider: Milagros Lee Primary Care Provider: Katalina Hart Other Providers: Milagros Lee Hospital Stay Data Consultations 09/18/25 16:13 ED Decision to Admit Stat Diagnostic Imagining Performed 09/18/25 15:18 CT angio chest PE protocol Stat Pending Results Patient Have Any Pending Studies at Discharge: No (peripheral blood flow cytometry) Discharge Instructions Given to Patient (Per Discharging Provider) We re-tested your oxygen and you need 2L of O2 continuously at rest and with activity Please schedule follow up with your respiratory supply company [employer] to find a CPAP mask that fits better You were found to be deficient in B12. Take the oral supplement and follow up with PCP to see whether you should continue the oral or have a series of injections CTA with multiple bilateral pulmonary nodules measuring up to 8mm- radiologist recommended follow up CT in 6 months - continue following up with Juan Antonio Nuñez in pulmonary clinic Total Time Total Time Spent Total Time Spent (In Minutes): 45 minutes. Total time included patient exam, discharge planning, medication reconciliation Coding Level of Care Code 73548 INP/OBS DISCH >30 MIN Diagnoses Acute exacerbation of chronic obstructive pulmonary disease (COPD) J44.1 Obstructive sleep apnea G47.33 Obesity hypoventilation syndrome E66.2 Chronic hypoxic respiratory failure J96.11 Pulmonary nodules R91.8 Thrombocytopenia D69.6
[2025-09-21 09:31] VITALS: BP 122/81; PULSE 84
== END 2025-09-21 10:03 | disposition home or self-care (01) | DRG 190 ==
LOC: ED 13:41 → 2N 16:44 → SUATTDRO 16:44 → 2N 19:00